=== PATIENT | female | born 1950 | race Caucasian/White ===

== ENCOUNTER 2020-03-26 07:37 | Emergency (ER) | payer OTHER, SELFPAY ==
[2020-03-26 07:48] VITALS: BMI 302.3
[2020-03-26 07:50] VITALS: BP 125/44; PULSE 67; RESP 18; TEMP 36.6; O2SAT 100
[2020-03-26 07:59] VITALS: O2SAT 97
--- NOTE | 2020-03-26 08:03 | CT_ITS ---
WS: [id number] CT HEAD TECHNIQUE: Noncontrast CT of the head obtained from the skullbase to the vertex. CLINICAL INFORMATION: fall, head injury, on aspirin COMPARISON: None. DLP: 756.[address] scans at [facility] use at least one of these dose optimization techniques: automat ed exposure control; mA and/or kV adjustment per patient size (includes targeted exams where dose is matched to clinical indication); or iterative reconstruction. FINDINGS: No evidence of intracranial hemorrhage or mass effect. Ventricular system and basal cisterns are chavez nt. Mild small vessel changes with moderate parenchymal volume loss. Chronic encephalomalacia in the left parietal lobe No extra-axial fluid collections. No evidence of mass or mass effect. Normal browne- white differentiation. Paranasal sinuses and mastoid air cells are well aerated. .Normal visualized soft tissues. Notified Esther Elizabeth MD at 03/26/2020 8:[address]/CT head wo con* [id number] IMPRESSION: 1. No evidence of intracranial hemorrhage or mass effect. 2. Chronic encephalomalacia left parietal lobe likely due to chronic infarct. 3. Mild small vessel changes with moderate parenchymal volume loss. 4. No acute intracranial findings.
--- NOTE | 2020-03-26 08:38 | W.ED.FALL ---
Documented by User: Esther Elizabeth MD 03/26/20 20:09 HPI - Fall General: Chief Complaint: Fall Stated Complaint: FALL/HEAD LAC Time Seen by Provider: 03/26/20 07:59 History of Present Illness: HPI Narrative: This patient is a 70-year-old female who lives at home and continues to work. She slipped and fell in the shower this morning and hit the back of her head. She denies loss consciousness or any presyncopal symptoms. She denies any neck pain or back pain. She has a small laceration on the back of her scalp. She does have a history of a small stroke in July and has been on a full size aspirin. She has a history of migraines for which she takes amitriptyline. She is also on medicine for high cholesterol. MD complaint: fall Onset (ago): hour(s) (1) Fall from: standing Fall witnessed: no Place fall occurred: home Loss of consciousness: None Symptoms prior to fall: none Context: tripped/slipped Location of injury: head Associated symptoms-after fall: Denies abdominal pain, chest pain, headache(s) or neck pain Review of Systems General: Reports: 10 or more systems reviewed and unremarkable except in HPI and below Const: Denies: fever(s), chills, fatigue or malaise Eyes: Denies: change in vision ENMT: Denies: odynophagia Card: Denies: chest pain or swelling of feet/ankles Resp: Denies: dyspnea, productive cough or non-productive cough GI: Denies: abdominal pain, nausea or vomiting : Denies: flank pain or difficulty voiding Musc: Denies: neck pain or back pain Skin/Breast: Denies: rash Neuro: Denies: headache(s), numbness in extremities or weakness in extremities Zhou/Lymph: Denies: easy bruising or easy bleeding Physical Exam Const: COMMON NORMALS: no acute distress, patient oriented x3, no limitations and alert GENERAL APPEARANCE: cooperative and comfortable HENMT: HEAD & SCALP: other (Laceration on the occiput, 2 cm in length) FACE & SINUS: normal facial exam Eye: GENERAL EYE: appearance normal, both eyes and all related structures Neck/C-Spine: COMMON NORMALS: supple, no meningeal signs and no JVD Chest: COMMONS NORMALS: normal inspection of the chest Resp: COMMON NORMALS: normal respiratory effort, No use of accessory muscles and clear to auscultation bilaterally AUSCULTATION: clear to auscultation bilaterally Cardio: COMMON NORMALS: no JVD, regular rate, regular rhythm and No murmurs present (Cardio) RATE: regular rate RHYTHM: regular rhythm GI: COMMON NORMALS: Normal to inspection, nondistended, normoactive bowel sounds present, Soft to palpation and non-tender INSPECTION: Yes normal to inspection AUSCULTATION: Yes normoactive bowel sounds PALPATION: Yes Soft to palpation Back/Pelvis: COMMON NORMALS: thoracic and lumbar spine normal to inspection Extremity: COMMON NORMALS: normal to inspection Neuro: COMMON NORMALS: patient oriented x3, moves all extremities, no focal motor deficits and no sensory deficits noted SENSORIUM/ORIENTATION: Yes alert MENINGEAL SIGNS: Yes no meningeal signs Psych: COMMON NORMALS: mental status grossly normal, cooperative and normal affect Skin: COMMON NORMALS: no rashes or lesions noted and turgor normal GENERAL SKIN EXAM: no rashes or lesions noted and turgor normal Course Vital Signs: Vital signs: Vital Signs Temperature 97.8 F 03/26/20 07:50 Pulse Rate 65 03/26/20 09:36 Respiratory Rate 18 03/26/20 07:50 Blood Pressure 145/69 03/26/20 09:36 Pulse Oximetry 97 03/26/20 09:36 Discharge Plan Discharge Patient Disposition: Home, Self-Care Clinical Impression: Fall Qualifiers: Encounter type: initial encounter Qualified Code(s): W19.XXXA - Unspecified fall, initial encounter Laceration of scalp Qualifiers: Encounter type: initial encounter Qualified Code(s): S01.01XA - Laceration without foreign body of scalp, initial encounter Condition: Stable Prescriptions: No Action aspirin 325 mg Tablet 325 mg PO DAILY RF: 0 amitriptyline 10 mg tablet RF: 0 atorvastatin 40 mg tablet RF: 0 Referrals: Daljit Robertson DO [Family Provider] - Discharge Diet: Usual diet Discharge Activity: Resume usual activity Patient Instructions: Laceration (ED) Activity Restrictions/Additional Instructions: Return to the emergency department for any new or worse symptoms. Be concerned about severe headache, balance difficulties, confusion, vision changes. Continue your regular medications. Alicia may be removed in 10 to 14 days at urgent care or your primary care physician. Discharge Date/Time: 03/26/20 09:36 Coding Level of Care Code ED Diploma Pharmacy Technician for Dylong Fwd Exam Comprehensive Documented by User: PATRIC Galindo 03/26/20 09:16 HPI - Fall General: Chief Complaint: Fall Stated Complaint: FALL/HEAD LAC Time Seen by Provider: 03/26/20 07:59 Procedures Laceration Laceration 1: Site: scalp (Right occipital) Size (cm): 2.5 Description: stellate, clean and other (Contused, with hematoma) Depth: simple, single layer Local Anesthetic: lidocaine 1% and with epi Amount of anesthesia used (mL): 3.0 Pre-repair: wound explored, irrigated extensively, deep structures intact and extensive debridement Skin layer closed with: other ([place] x4, edges approximated) Course Vital Signs: Vital signs: Vital Signs Temperature 97.8 F 03/26/20 07:50 Pulse Rate 65 03/26/20 09:36 Respiratory Rate 18 03/26/20 07:50 Blood Pressure 145/69 03/26/20 09:36 Pulse Oximetry 97 03/26/20 09:36 Discharge Plan Discharge Patient Disposition: Home, Self-Care Clinical Impression: Fall Qualifiers: Encounter type: initial encounter Qualified Code(s): W19.XXXA - Unspecified fall, initial encounter Laceration of scalp Qualifiers: Encounter type: initial encounter Qualified Code(s): S01.01XA - Laceration without foreign body of scalp, initial encounter Condition: Stable Prescriptions: No Action aspirin 325 mg Tablet 325 mg PO DAILY RF: 0 amitriptyline 10 mg tablet RF: 0 atorvastatin 40 mg tablet RF: 0 Referrals: Daljit Robertson DO [Family Provider] - Discharge Diet: Usual diet Discharge Activity: Resume usual activity Patient Instructions: Laceration (ED) Activity Restrictions/Additional Instructions: Return to the emergency department for any new or worse symptoms. Be concerned about severe headache, balance difficulties, confusion, vision changes. Continue your regular medications. Alicia may be removed in 10 to 14 days at urgent care or your primary care physician. Discharge Date/Time: 03/26/20 09:36 Coding Level of Care Code ED Diploma Pharmacy Technician for Chg Fwd Exam Comprehensive
[2020-03-26 09:24] VITALS: BP 129/70; PULSE 60; O2SAT 98
[2020-03-26 09:36] VITALS: BP 145/69; PULSE 65; O2SAT 97
== END 2020-03-26 09:36 | disposition home or self-care (01) ==
PROVIDERS: Emergency Provider Emergency Medicine; Family Provider Electrodiagnostic Medicine
DX: S01.01XA Laceration without foreign body of scalp, initial encounter (principal); W18.2XXA Fall in (into) shower or empty bathtub, initial encounter; Z79.82 Long term (current) use of aspirin
CPT/HCPCS: 12345; 70450; 99281; 99283

== ENCOUNTER → 2020-06-07 14:32 | Outpatient (BNVA) | payer OTHER, SELFPAY | PROVIDERS: Family Provider Electrodiagnostic Medicine; Referring Provider Electrodiagnostic Medicine; Visit Provider Podiatrist Foot & Ankle Surgery | DX: M20.12 Hallux valgus (acquired), left foot (principal); M79.672 Pain in left foot | CPT/HCPCS: 73630 ==

== ENCOUNTER 2020-06-23 10:03 | Outpatient (CLI) | payer OTHER, SELFPAY ==
--- NOTE | 2020-06-23 10:23 | MM_ITS ---
WS: [id number] BILATERAL DIGITAL SCREENING MAMMOGRAPHY WITH CAD CLINICAL INFORMATION: SCREENING HISTORY: Screening mammogram. No current complaints. COMPARISON: TECHNIQUE: Bilateral CC and MLO views. FINDINGS: Scattered fibroglandular densities bilaterally. No suspicious focal mass, asymmetry, calcifications, or architectural distortion. No evidence of malignancy. Stable asymmetric breast tissue upper outer l eft breast. Stable axillary tail lymph nodes. A few punctate calcifications right breast. MM/[place] [id number] IMPRESSION: BI-RADS: 2-Benign FOLLOW UP: 1 Year Follow-up Recommend return to annual screening mammography.
== END 2020-06-23 10:04 | disposition home or self-care (01) ==
LOC: RADSHAW 10:05
PROVIDERS: PCP Electrodiagnostic Medicine; Visit Provider Electrodiagnostic Medicine
DX: Z12.31 Encounter for screening mammogram for malignant neoplasm of breast (principal)
CPT/HCPCS: 77067

== ENCOUNTER 2020-07-07 11:48 | Emergency (ER) | payer OTHER, SELFPAY ==
[2020-07-07 11:53] VITALS: BP 179/74; PULSE 71; RESP 16; TEMP 36.6; O2SAT 96; BMI 29.4
--- NOTE | 2020-07-07 12:20 | XR_ITS ---
WS: [id number] PORTABLE CHEST HISTORY: chest pain COMPARISON: 07/16/2019 Lungs are clear and well expanded. No pleural effusion or pneumothorax. Cardiac size: Normal. Mediastinum/Aorta: Mild atherosclerosis aorta. No osseous abnormality seen. XR/XR chest 1V portable [id number] IMPRESSION: No acute cardiopulmonary disease.
--- NOTE | 2020-07-07 12:21 | ECG_ITS ---
[facility] Test Date: 2020-07-07 Pat Name: Beena Fernandez Department: Room: Gender: Female Cutter Out: : 1950 Requested By: Morris Meier I Order Number: [id number] Reading MD: Measurements Intervals [place] Rate: 69 P: 51 DC: 198 QRS: 12 QRSD: 86 T: 29 QT: 400 QTc: 430 Interpretive Statements SINUS RHYTHM No previous ECG available for comparison [id number] f
[2020-07-07 12:29] LABS: Basophils # 0.1 10^3/uL (0.0-0.1); Basophils % 0.6 %; Eosinophils # 0.2 10^3/uL (0.0-0.8); Eosinophils % 2.3 %; Hematocrit 39.8 % (37.0-47.0); Hemoglobin 12.5 g/dL (11.5-15.3); Lymphocytes # 1.6 10^3/uL (0.8-4.8); Lymphocytes % 17.5 %; Mean Corpuscular HGB Conc 31.4 g/dL (30.0-36.0); Mean Corpuscular Hemoglobin 28.7 pg (28.0-34.0); Mean Corpuscular Volume 91.3 fL (81-99); Mean Platelet Volume 11.4 fL (7.4-10.4); Monocytes # 0.7 10^3/uL (0.2-0.9); Monocytes % 7.3 %; Neutrophils # 6.55 10^3/uL (1.8-7.7); Nucleated Red Blood Cells % 0 %; Platelet Count 220 10^3/cmm (130-400); Red Blood Count 4.36 10^6/uL (4.1-5.3); Red Cell Distribution Width 13.5 % (12.1-15.1); White Blood Count 9.1 10^3/uL (4.0-10.0)
--- NOTE | 2020-07-07 12:32 | ED_ITS ---
HPI - Recheck/Abnormal Lab/Rx General: Chief Complaint: Recheck/Abnormal Lab/Rx Stated Complaint: called over for blood/ekg tests Time Seen by Provider: 07/07/20 11:57 Source: patient and other (PCP's office) Mode of arrival: ambulatory Limitations: no limitations History of Present Illness: HPI narrative: Patient is a 70-year-old female patient with a history of hypertension, CVA, presents to the emergency department from her primary care provider's office with concerns for STEMI. She went to her PCPs office for a preop clearance for shoulder surgery and an EKG done in her PCPs office showed STEMI in V1 to V3. So she was sent here to be seen. The patient denies any chest pain, shortness of breath, difficulty breathing, headaches, dizziness, diaphoresis. 1 week ago she had an episode of epigastric pain/chest pain that she thought was secondary to a hamburger that she had eaten that day. Review of Systems General: Reports: 10 or more systems reviewed and unremarkable except in HPI and below Const: Denies: fever(s), chills or body aches Eyes: Denies: change in vision or blurry vision ENMT: Denies: throat pain, enlarged tonsils, odynophagia, hoarseness, mouth pain or swelling of lips/tongue Card: Denies: palpitations, irregular heart rhythm, edema or swelling of feet/ankles Resp: Denies: dyspnea, productive cough or non-productive cough GI: Denies: abdominal pain, nausea or vomiting : Denies: flank pain, difficulty voiding, dysuria, urinary frequency, urinary urgency or urinary hesitancy Musc: Denies: neck pain, back pain or extremity swelling Skin/Breast: Denies: rash, pruritus or erythema Neuro: Denies: headache(s), numbness in extremities or weakness in extremities Endo: Denies: polyuria, polydipsia or tired all the time PFSH ED PFSH: Medical History (Reviewed 07/07/20 @ 12:37 by Morris Meier MD, [facility] [place]) CVA (cerebral vascular accident) Family History Other CAD (coronary artery disease) Cancer Diabetes Family history of premature coronary artery disease Hyperlipidemia Hypertension Denies family history of Clotting disorder Dementia Psychiatric illness Chronic kidney disease (CKD) Suicide Anesthesia complication Bleeding disorder Lung disease Stroke Physical Exam Const: COMMON NORMALS: no acute distress, average body habitus, patient oriented x3, no limitations, healthy appearing, alert and well nourished HENMT: COMMON NORMALS: normocephalic, atraumatic and moist oral mucous membranes HEAD & SCALP: normocephalic and atraumatic Eye: COMMON NORMALS: Equal, round and reactive pupils present, EOMs intact b ilaterally, conjunctivae normal and no scleral icterus CONJUNCTIVA: Yes conjunctivae normal PUPIL: Yes Equal, round and reactive pupils present Neck/C-Spine: COMMON NORMALS: no meningeal signs and no JVD Chest: COMMONS NORMALS: normal inspection of the chest and normal palpation of entire chest wall Resp: COMMON NORMALS: normal respiratory effort, No retractions, No use of accessory muscles, clear to auscultation bilaterally and percussion normal AUSCULTATION: clear to auscultation bilaterally PERCUSSION: percussion normal Cardio: COMMON NORMALS: no JVD, regular rate, regular rhythm, S1 normal heart sound present, S2 normal heart sound present, No gallops present (Cardio), No clicks present (Cardio), No murmurs present (Cardio), No rub (Cardio) and Peripheral pulses 2+ throughout RATE: regular rate RHYTHM: regular rhythm HEART SOUNDS: S1 normal heart sound present and S2 normal heart sound present PERIPHERAL PULSES: Peripheral pulses 2+ throughout GI: COMMON NORMALS: Normal to inspection, nondistended, normoactive bowel sounds present, Soft to palpation, non-tender, No hepatosplenomegaly present, no masses and no bruits PALPATION: Yes Soft to palpation and Yes No hepatospl enomegaly present Extremity: COMMON NORMALS: normal to inspection, full ROM, capillary refill normal, no calf tenderness and no pedal edema Neuro: COMMON NORMALS: patient oriented x3 SENSORIUM/ORIENTATION: Yes alert MENINGEAL SIGNS: Yes no meningeal signs Skin: COMMON NORMALS: no rashes or lesions noted, no wounds, turgor normal, no jaundice, no petechiae and no mottling GENERAL SKIN EXAM: no rashes or lesions noted and turgor normal Course Reevaluation(s): Reevaluation #1: Discussed her lab and imaging findings with her. Negative for acute findings. Negative high-sensitivity troponin x2. I do not believe she had a non-STEMI. We will discharge her home with no new orders, she voiced understanding and is in agreement with the plan. Time: 15:14 Vital Signs: Vital signs: Vital Signs Temperature 97.8 F 07/07/20 11:53 Pulse Rate 79 07/07/20 15:23 Respiratory Rate 18 07/07/20 15:23 Blood Pressure 136/66 07/07/20 15:23 Pulse Oximetry 95 07/07/20 15:23 MDM - Recheck/Abnormal Lab/Rx MDM Narrative: Medical decision making narrative: 70-year-old female patient who was sent to the emergency department by her primary care provider with concerns for a STEMI. In evaluation in the emergency department EKG was normal, high-sensitivity troponin was negative x2. Patient was asymptomatic. She is therefore discharged home with no new orders. Medical Records: Attestation: I reviewed the patient's medical records. Lab Data: Attestation: I reviewed the patient's lab results. Labs: Lab Results 07/07/20 07/07/20 07/07/20 Range/Units 12:02 12:02 12:02 WBC 9.1 (4.0-10.0) 10^3/ uL RBC 4.36 (4.1-5.3) 10^6/u L Hgb 12.5 (11.5-15.3) g/dL Hct 39.8 (37.0-47.0) % MCV 91.3 (81-99) fL MCH 28.7 (28.0-34.0) pg MCHC 31.4 (30.0-36.0) g/dL RDW 13.5 (12.1-15.1) % Plt Count 220 (130-400) 10^3/c mm MPV 11.4 H (7.4-10.4) fL Neut % (Auto) 72.0 % Lymph % (Auto) 17.5 % [place] % (Auto) 7.3 % Eos % (Auto) 2.3 % Baso % (Auto) 0.6 % Neut # (Auto) 6.55 (1.8-7.7) 10^3/u L Lymph # (Auto) 1.6 (0.8-4.8) 10^3/u L [place] # (Auto) 0.7 (0.2-0.9) 10^3/u L Eos # (Auto) 0.2 (0.0-0.8) 10^3/u L Baso # (Auto) 0.1 (0.0-0.1) 10^3/u L Nucleated RBC % (a uto) 0 % Nucleated RBCs # 0.0 /100WBC Sodium 135 L (136-145) mmol/L Potassium 3.8 (3.5-5.1) mmol/L Chloride 100 (98-107) mmol/L Carbon Dioxide 27 (22-29) mmol/L Anion Gap 11.8 (5-19) BUN 21 (8-23) mg/dL Creatinine 0.6 (0.5-0.9) mg/dL GFR Calculation Not Reportable Glucose 93 (65-115) mg/dL Calculated Osmolal ity 283 L (285-295) mOsm/k g Calcium 9.2 (8.5-10.5) mg/dL Total Bilirubin 0.4 (0.15-1.2) mg/dL AST 23 (0-32) U/L ALT 26 (0-33) U/L Alkaline Phosphata se 135 H (35-105) IU/L Troponin T Baselin e 6 (0-10) ng/L Troponin T 120 Min [place] (0-10) ng/L Delta Troponin T (0-10) ABS# NT-Pro-B Natriuret Pep 234 H (0-125) pg/mL Total Protein 7.3 (6.6-8.7) g/dL Albumin 4.4 (3.5-5.2) g/dL Globulin 2.9 (1.3-4.6) g/dL Lipase 20 (13-60) U/L /28/20 Range/Units 14:03 WBC (4.0-10.0) 10^3/ uL RBC (4.1-5.3) 10^6/u L Hgb (11.5-15.3) g/dL Hct (37.0-47.0) % MCV (81-99) fL MCH (28.0-34.0) pg MCHC (30.0-36.0) g/dL RDW (12.1-15.1) % Plt Count (130-400) 10^3/c mm MPV (7.4-10.4) fL Neut % (Auto) % Lymph % (Auto) % [place] % (Auto) % Eos % (Auto) % Baso % (Auto) % Neut # (Auto) (1.8-7.7) 10^3/u L Lymph # (Auto) (0.8-4.8) 10^3/u L [place] # (Auto) (0.2-0.9) 10^3/u L Eos # (Auto) (0.0-0.8) 10^3/u L Baso # (Auto) (0.0-0.1) 10^3/u L Nucleated RBC % (a uto) % Nucleated RBCs # /100WBC Sodium (136-145) mmol/L Potassium (3.5-5.1) mmol/L Chloride (98-107) mmol/L Carbon Dioxide (22-29) mmol/L Anion Gap (5-19) BUN (8-23) mg/dL Creatinine (0.5-0.9) mg/dL GFR Calculation Glucose (65-115) mg/dL Calculated Osmolal ity (285-295) mOsm/k g Calcium (8.5-10.5) mg/dL Total Bilirubin (0.15-1.2) mg/dL AST (0-32) U/L ALT (0-33) U/L Alkaline Phosphata se (35-105) IU/L Troponin T Baselin e (0-10) ng/L Troponin T 120 Min [place] 6.50 (0-10) ng/L Delta Troponin T 0.50 (0-10) ABS# NT-Pro-B Natriuret Pep (0-125) pg/mL Total Protein (6.6-8.7) g/dL Albumin (3.5-5.2) g/dL Globulin (1.3-4.6) g/dL Lipase (13-60) U/L Imaging Data^: CXR: Attestation: I personally reviewed and interpreted this imaging study as follows: Radiologist's impression: [address] [address] XRay Report Signed Patient: Beena Frenandez #: [id number] : 1950cct#:[id number] Age/Sex: 70 / FADM Date: 07/07/20 Loc: ERRoom/Bed: Attending Dr: Ordering Provider/Ordering MD: Morris Meier MD, [facility] [place] Date of Service: 07/07/20 Procedure(s): XR chest 1V portable [id number] Accession Number(s): [id number] Report Number: [id number] WS: [id number] PORTABLE CHEST HISTORY: chest pain COMPARISON: 07/16/2019 Lungs are clear and well expanded. No pleural effusion or pneumothorax. Cardiac size: Normal. Mediastinum/Aorta: Mild atherosclerosis aorta. No osseous abnormality seen. XR/XR chest 1V portable [id number] IMPRESSION: No acute cardiopulmonary disease. Dictated By:Khadra Palma DO Signed By:Khadra Palma DOSigned Date/Time:07/07/20 1235 DD/ 1234 EKG Data^: EKG 1: Attestation: I personally reviewed and interpreted this EKG as follows: EKG interpretation date: 07/07/20 EKG interpretation time: 11:54 Prior EKG tracings: not available for review Interpretation: Normal sinus rhythm. Heart rate [address] changes. Normal axis EKG 2: Attestation: I personally reviewed and interpreted this EKG as follows: EKG interpretation date: 07/07/20 EKG interpretation time: 14:19 Prior EKG tracings: available for review Interpretation: Sinus bradycardia. Heart rate [address] changes. normal axis. Discharge Plan Discharge Patient Disposition: Home Clinical Impression: Worried well Condition: Stable Prescriptions: Continued aspirin 325 mg Tablet 325 mg PO DAILY RF: 0 amitriptyline 10 mg tablet 10 mg PO DAILY RF: 0 atorvastatin 40 mg tablet 40 mg PO DAILY RF: 0 Imodium A-D 2 mg Tablet 2 mg PO DAILY RF: 0 Vitamin D2 1,250 mcg (50,000 unit) Capsule See Rx Instructions .ROUTE .COMPLEX RF: 0 coQ10 (ubiquinol) 200 mg Capsule 200 mg PO DAILY RF: 0 Discharge Orders: Discharge Order (Routine); Ordered 07/07/20 Ordered By: Morris Meier Referrals: Daljit Robertson DO [Primary Care Provider] - 1-3 days Discharge Diet: Usual diet Discharge Activity: Increase activity as tolerated Activity Restrictions/Additional Instructions: Return for any new or worsening symptoms. Follow-up with your primary care provider within 3 days. Continue home medications as prescribed. Discharge Date/Time: 07/07/20 15:25 Coding Level of Care Code ED Welt Sewer for Dylong Fwd Exam Comprehensive
[2020-07-07 12:38] LABS: Troponin(5th) Baseline 6 ng/L (0-10)
[2020-07-07 12:46] LABS: Alanine Aminotransferase 26 U/L (0-33); Albumin Level 4.4 g/dL (3.5-5.2); Alkaline Phosphatase 135 IU/L (35-105); Anion Gap 11.8 (5-19); Aspartate Amino Transferase 23 U/L (0-32); Blood Urea Nitrogen 21 mg/dL (8-23); Calcium 9.2 mg/dL (8.5-10.5); Carbon Dioxide 27 mmol/L (22-29); Chloride 100 mmol/L (98-107); Globulin 2.9 g/dL (1.3-4.6); Glucose 93 mg/dL (65-115); Lipase 20 U/L (13-60); NT Pro B Type Natriuretic Pept 234 pg/mL (0-125); Osmolality Calculated 283 mOsm/kg (285-295); Potassium 3.8 mmol/L (3.5-5.1); Sodium 135 mmol/L (136-145); Total Bilirubin 0.4 mg/dL (0.15-1.2); Total Protein 7.3 g/dL (6.6-8.7)
[2020-07-07 13:01] VITALS: BP 136/75; PULSE 70; RESP 18; O2SAT 96
--- NOTE | 2020-07-07 14:21 | ECG_ITS ---
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
[2020-07-07 15:23] VITALS: BP 136/66; PULSE 79; RESP 18; O2SAT 95
== END 2020-07-07 15:25 | disposition home or self-care (01) ==
PROVIDERS: Emergency Provider Family Medicine; PCP Electrodiagnostic Medicine
DX: Z86.73 Personal history of transient ischemic attack (TIA), and cerebral infarction without residual deficits (principal)
CPT/HCPCS: 12345; 71045; 80053; 83690; 83880; 84484; 85025; 93005; 99281; 99283

== ENCOUNTER 2020-07-09 09:04 | Outpatient (CLI) | payer OTHER, SELFPAY ==
--- NOTE | 2020-07-09 09:30 | USCV_ITS ---
Beena Fernandez Age: 70 Gender: F : 1950 Exam Date: 07/09/2020 09:20 Ordering Phys: Daljit Robertson DO Technologist: Naa Dorado Exam Location: [facility] [place] Indication: aortic stenosis BP: / HR: 68 Rhythm: Sinus Technical Quality: Good MEASUREMENTS (Male / Female) Normal Values 2D ECHO LV Diastolic Diameter PLAX 4.5 cm 4.2 - 5.9 / 3.9 - 5.3 cm LV Systolic Diameter PLAX 2.9 cm IVS Diastolic Thickness 1.0 cm 0.6 - 1.0 / 0.6 - 0.9 cm IVS Systolic Thickness 1.3 cm LVPW Diastolic Thickness 1.0 cm 0.6 - 1.0 / 0.6 - 0.9 cm LVPW Systolic Thickness 1.6 cm LVOT Diameter 2.1 cm LV Ejection Fraction 2D Teich 65.6 % LV Ejection Fraction MOD 2C 70.4 % LV Ejection Fraction 2C AL 71.0 % LA Diameter 2.5 cm LA Width 3.5 cm LA Height 4.2 cm RA Width 2.6 cm RA Height 4.5 cm M-MODE LV Diastolic Diameter MM 5.3 cm 4.2 - 5.9 / 3.9 - 5.3 cm LV Systolic Diameter MM 3.8 cm LV Ejection Fraction MM Teich 53.8 % IVS Diastolic Thickness MM 0.6 cm 0.6 - 1.0 / 0.6 - 0.9 cm IVS Systolic Thickness MM 0.7 cm LVPW Diastolic Thickness MM 0.9 cm 0.6 - 1.0 / 0.6 - 0.9 cm LVPW Systolic Thickness MM 1.5 cm Aortic Annulus Diameter 3.1 cm LA Ao Ratio MM 0.9 MV E Point Septal Separation 0.8 cm DOPPLER AV Peak Velocity 247.2 cm/s LVOT Peak Velocity 83.0 cm/s AV Area Cont Eq vti 1.3 cm squared AV Area Cont Eq pk 1.1 cm squared MV Peak Velocity 82.0 cm/s MV Area PHT 3.2 cm squared Mitral E to A Ratio 0.7 MV E' Velocity 34.5 cm/s Mitral E to MV E' Ratio 6.1 Mitral E to LV E' Lateral Ratio 6.1 Mitral E to LV E' Septal Ratio 6.1 TR Peak Velocity 144.5 cm/s TR Peak Gradient 8.4 mmHg Right Atrial Pressure 3.0 mmHg Pulmonary Artery Systolic Pressu 11.4 mmHg PV Peak Velocity 113.7 cm/s RV Acceleration Time 0.1 s FINDINGS Left Ventricle Normal left ventricular cavity size. Normal left ventricular systolic function. No regional wall motion abnormalities. Left ventricular ejection fraction is estimated at 65 %. possible patent formen ovale by color flow. Right Ventricle The right ventricle is normal in size and function. Right Atrium The right atrium is normal in size. Left Atrium The left atrium is normal in size. Mitral Valve Structurally normal mitral valve without significant stenosis or prolapse. There is no mitral regurgitation. Aortic Valve Severe aortic valve calcification. Moderate aortic valve stenosis, mean gradient 13 mmHg, JAMEL 1.3 cm squared. Gradient across the aortic valve 13mmhg.Mild Aortic valve insufficiency. Tricuspid Valve Structurally normal tricuspid valve without significant stenosis or regurgitation. Pulmonary artery systolic pressure is normal. Pulmonic Valve Structurally normal pulmonic valve without significant stenosis. There is no pulmonic regurgitation. Pericardium Normal pericardium without effusion. Aorta Normal ascending aorta dimension. CONCLUSIONS 1-Normal left ventricular cavity size. Normal left ventricular systolic function. No regional wall motion abnormalities. Left ventricular ejection fraction is estimated at 65 %. possible patent formen ovale by color flow. 2-Severe aortic valve calcification. Moderate aortic valve stenosis, mean gradient 13 mmHg, JAMEL 1.3 cm squared. Gradient across the aortic valve 13mmhg.Mild Aortic valve insufficiency. 3-Structurally normal tricuspid valve without significant stenosis or regurgitation. Pulmonary artery systolic pressure is normal. 4-There is no pericardial effusion. 5-Right atrial pressure is around 5 mm of mercury. 6-No significant change since the prior echocardiogram study of 07/16/2019. Brenda Echavarria MD (Electronically Signed) Final Date: 09 July 2020 17:24 S
== END 2020-07-09 09:05 | disposition home or self-care (01) ==
LOC: RAD 09:09
PROVIDERS: PCP Electrodiagnostic Medicine; Visit Provider Electrodiagnostic Medicine
DX: I35.0 Nonrheumatic aortic (valve) stenosis (principal)
CPT/HCPCS: 93306

== ENCOUNTER 2020-10-12 07:47 | Outpatient (CLI) | payer OTHER, SELFPAY ==
--- NOTE | 2020-10-12 07:56 | ECG_ITS ---
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 Interpretive Statements NAME OF STUDY: LEXISCAN SESTAMIBI STRESS TEST INDICATION: Sob PROCEDURE: At the baseline, the EKG revealed normal sinus rhythm with a heart rate of [address]-T's.. The baseline blood pressure was 147/57 mm Hg with a heart rate of 67 beats/min. Lexiscan was infused over a period of 20 seconds. A total of 0.4 milligrams of Lexiscan was infused. The stress phase was continued for a total of 5 minutes. Heart rate at the end of the stress phase was 83 with a blood pressure 117/52. The EKG at the peak infusion revealed no significant changes. Sestamibi was injected 20 seconds after the Lexiscan infusion. Blood pressure at the end of the recovery phase was 125/52 with a heart rate of 79 per minute. CONCLUSION: 1. No significant EKG changes with the LexiScan infusion 2. No LexiScan induced chest pain or cardiac arrhythmia 3. Normal blood pressure and heart rate response 4. Sestamibi/sestamibi perfusion scan pending; see separate report. Electronically Signed On 10-21-2020 9:42:49 SPECIAL LIBRARY LIBRARIAN by Julia Nolasco M.D. [email or web address]
--- NOTE | 2020-10-12 07:57 | NMCV_ITS ---
NM samia perf SPECT r/s* [id number] Beena Fernandez Age: 70 Gender: F : 1950 Exam Date: 10/12/2020 09:13 Ordering Phys: Julia Nolasco MD ([email or web address]) Technologist: RADHA Dc Exam Location: [facility] [place] Indications: SOB, abnormal EKG STRESS TEST Please see separate stress test report in [facility] for full findings IMAGE PROTOCOL Rest/Stress 1 Lexiscan Day Radiopharmaceutical Dose (mCi) Administration Site Administered by Rest: Tc-99m 10.4 IV RADHA Morfin Sestamibi Stress:Tc-99m 32.3 IV RADHA Dc Sestamibi Rest: 12-Oct-2020 60 Discovery 630 Stress: 12-Oct-2020 45 Discovery 630 0.4mg Lexiscan. Images obtained in supine and prone position. SPECT RESULTS Technical Quality: Good Raw Data Analysis: Normal Image Corrections: No attenuation or motion correction applied Summed Stress Score: 3 Summed Rest Score: 1 Summed Difference Score: 2 PERFUSION FINDINGS Small area of decreased tracer uptake was noted in the mid inferolateral and apical lateral region, with some reversibility segmental wall motion analysis revealing no gross wall motion normalities FUNCTIONAL RESULTS (calculated via Gated SPECT) Stress Image LV EF (%): 66 Stress EDV (mL):94 TID: 0.95 Stress ESV (mL):32 FUNCTIONAL FINDINGS: Segmental wall motion analysis revealing no gross wall motion abnormalities IMPRESSIONS 1. Myocardial perfusion imaging revealing a small area of decreased tracer uptake in the mid inferolateral and apical lateral regions, with some reversibility, suggestive of myocardial scarring with ischemia in the distribution of the left circumflex artery. 2. Normal LV ejection fraction of 66%. 3. LV wall motion analysis revealing no gross wall motion normalities. 4. Normal LV volume. No similar previous studies are available for comparison Dr Julia Nolasco MD [facility] (Electronically Signed) Final Date: 12 October 2020 16:54 S
[2020-10-12] MEDS: regadenoson 0.4 Mg/5 ml Syringe IVP (11:06)
[2020-10-12 11:19] VITALS: BP 125/52; PULSE 79
== END 2020-10-12 07:48 | disposition home or self-care (01) ==
LOC: CDL 07:51
PROVIDERS: PCP Electrodiagnostic Medicine; Visit Provider Internal Medicine Cardiovascular Disease
DX: R06.02 Shortness of breath (principal); R94.31 Abnormal electrocardiogram [ECG] [EKG]
CPT/HCPCS: 78452; 93017; A9500; J2785

== ENCOUNTER → 2021-03-10 11:19 | Outpatient (BNVA) | payer OTHER, SELFPAY | PROVIDERS: PCP Electrodiagnostic Medicine; Visit Provider Podiatrist Foot & Ankle Surgery | DX: M67.472 Ganglion, left ankle and foot (principal) | CPT/HCPCS: 88304 ==

== ENCOUNTER → 2021-04-18 15:46 | Outpatient (BNVA) | payer OTHER, SELFPAY | PROVIDERS: PCP Electrodiagnostic Medicine; Visit Provider Nurse Practitioner Family | DX: Z20.822 Contact with and (suspected) exposure to COVID-19 (principal) | CPT/HCPCS: 87635 ==

== ENCOUNTER 2022-03-08 13:59 | Outpatient (CLI) | payer OTHER, SELFPAY ==
--- NOTE | 2022-03-08 14:14 | MM_ITS ---
WS: [id number] BILATERAL 3D TOMOSYNTHESIS DIGITAL SCREENING MAMMOGRAPHY WITH CAD CLINICAL INFORMATION: SCREENING HISTORY: Screening mammogram. No current complaints. COMPARISON: June 23, 2020 TECHNIQUE: Bilateral CC and MLO views. FINDINGS: Scattered fibroglandular densities bilaterally. Punctate calcification RIGHT breast. No suspicious fo meggan mass, asymmetry, calcifications, or architectural distortion. No evidence of malignancy. MM/[place] [id number] IMPRESSION: BI-RADS: 2-Benign FOLLOW UP: 1 Year Follow-up Recommend return to annual screening mammography.
== END 2022-03-08 14:00 | disposition home or self-care (01) ==
LOC: RAD 14:03
PROVIDERS: PCP Electrodiagnostic Medicine; Visit Provider Electrodiagnostic Medicine
DX: Z12.31 Encounter for screening mammogram for malignant neoplasm of breast (principal)
CPT/HCPCS: 77063; 77067

== ENCOUNTER 2022-10-18 12:25 | Outpatient (CLI) | payer MEDICARE, OTHER, SELFPAY ==
--- NOTE | 2022-10-18 12:45 | USCV_ITS ---
Beena Fernandez Age: 72 Gender: F : 1950 Exam Date: 10/18/2022 12:57 Ordering Phys: Joe Mcclure MD ([email or web address]) Technologist: Naa Dorado Exam Location: [facility] [place] Indication: BP: 118 / 70 HR: 56 Rhythm: Sinus Technical Quality: Good MEASUREMENTS (Male / Female) Normal Values 2D ECHO LV Diastolic Diameter PLAX 4.7 cm 4.2 - 5.9 / 3.9 - 5.3 cm LV Systolic Diameter PLAX 2.8 cm IVS Diastolic Thickness 1.3 cm 0.6 - 1.0 / 0.6 - 0.9 cm IVS Systolic Thickness 1.8 cm LVPW Diastolic Thickness 0.6 cm 0.6 - 1.0 / 0.6 - 0.9 cm LVPW Systolic Thickness 1.5 cm LVOT Diameter 2.2 cm LV Ejection Fraction 2D Teich 70.4 % LV Ejection Fraction MOD 2C 66.1 % LV Ejection Fraction 2C AL 68.5 % LA Diameter 2.9 cm LA Width 3.6 cm LA Height 4.0 cm RA Width 2.7 cm RA Height 4.5 cm Aorta at Sinotubular Diameter 3.0 cm IVC Diameter 1.5 cm M-MODE MV E Point Septal Separation 0.6 cm DOPPLER AV Peak Velocity 180.0 cm/s LVOT Peak Velocity 75.0 cm/s AV Area Cont Eq vti 1.8 cm squared AV Area Cont Eq pk 1.6 cm squared MV Area PHT 2.4 cm squared Mitral E to A Ratio 0.7 MV E' Velocity 28.5 cm/s Mitral E to MV E' Ratio 6.6 Mitral E to LV E' Lateral Ratio 7.6 Mitral E to LV E' Septal Ratio 5.9 TR Peak Velocity 218.0 cm/s TR Peak Gradient 19.0 mmHg Right Atrial Pressure 3.0 mmHg Pulmonary Artery Systolic Pressu 22.0 mmHg PV Peak Velocity 126.0 cm/s RV Acceleration Time 0.2 s RV Ejection Time 0.4 s RV AcT/ET 0.5 FINDINGS Left Ventricle Normal left ventricular size and systolic function, EF 66 %. No regional wall motion abnormalities. Grade I/IV diastolic dysfunction (abnormal relaxation filling pattern), normal to mildly elevated filling pressures. Right Ventricle The right ventricle is normal in size and function. Right Atrium The right atrium is normal in size. Left Atrium Mildly increased left atrial size. Mitral Valve Mild mitral valve regurgitation. Aortic Valve Moderate to heavy aortic valve calcification. Mild aortic valve stenosis with a valve area 1.8 cm squared. Tricuspid Valve No gross abnormalities noted.trace tricuspid valve regurgitation. Pulmonic Valve Pulmonic valve not well visualized. Pericardium No pericardial effusion. Aorta Normal aorta size at the level of the sinus of valsalva. IVC Normal inferior vena cava. CONCLUSIONS Normal left ventricular size and systolic function, EF 66 %. No regional wall motion abnormalities. Grade I/IV diastolic dysfunction (abnormal relaxation filling pattern), normal to mildly elevated filling pressures. Mildly increased left atrial size. Moderate to heavy aortic valve calcification. Mild aortic valve stenosis with a valve area 1.8 cm squared. Mild mitral valve regurgitation. Trace of tricuspid regurgitation Estimated pulmonary artery peak systolic pressure, within normal limits Compared to the study from 07/09/2020. The aortic valve stenosis appears to be less severe. Dr Julia Nolasco MD [facility] (Electronically Signed) Final Date: 18 October 2022 13:47 S
== END 2022-10-18 12:26 | disposition home or self-care (01) ==
LOC: RAD 12:29
PROVIDERS: PCP Electrodiagnostic Medicine; Visit Provider Internal Medicine Cardiovascular Disease
DX: I35.0 Nonrheumatic aortic (valve) stenosis (principal); I34.0 Nonrheumatic mitral (valve) insufficiency; I07.1 Rheumatic tricuspid insufficiency
CPT/HCPCS: 93306

== ENCOUNTER 2022-11-14 18:53 | Emergency (ER) | payer MEDICARE, OTHER, SELFPAY ==
[2022-11-14] VITALS (13 sets, daily range): BP systolic 113–161; BP diastolic 41–67; PULSE 55–90; RESP 11–26; O2SAT 95–99; BMI 23.8
--- NOTE | 2022-11-14 19:11 | ECG_ITS ---
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 Measurements Intervals [place] Rate: 70 P: 75 NC: 200 QRS: 62 QRSD: 82 T: 68 QT: 396 QTc: 430 Interpretive Statements SINUS RHYTHM WITH OCCASIONAL VENTRICULAR PREMATURE COMPLEXES POSSIBLE LEFT ATRIAL ENLARGEMENT [-0.1mV P-WAVE IN V1/V2] MODERATE ST DEPRESSION [0.05+ mV ST DEPRESSION] Compared to ECG 07/07/2020 14:19:21 Ventricular premature complex(es) now present Sinus bradycardia no longer present ST (T wave) deviation still present Electronically Signed On 11-15-2022 15:04:11 SPOT WORKER by Joe Mcclure M.D. [id number]
--- NOTE | 2022-11-14 19:13 | ED_ITS ---
HPI - General Adult General: Chief complaint: General Medical Stated complaint: stroke like sx Time Seen by Provider: 11/14/22 19:13 History of Present Illness: Ms. Fernandez is a 72-year-old lady with history of stroke, aortic stenosis, hypertension, hyperlipidemia presenting to the [facility] department for shaking episodes. She describes yesterday having acute onset of shortness of breath and shaking associated with presyncopal type feeling. She has had recurrent episodes including most recently this evening when she was going out to go to dinner. Intensity symptoms when present is moderate to severe. Denies any focality to neurologic findings. No other specific changes in health, exacerbating, or alleviating factors identified. Onset (ago): hour(s) Severity: moderate Relieving factors: none Exacerbating factors: none Associated symptoms: Reports other Review of Systems General: Reports: 10 or more systems reviewed and unremarkable except in HPI and below PFSH ED PFSH: Medical History Abnormal EKG Aortic stenosis Atherosclerosis Chronic migraine CVA (cerebral vascular accident) Dyslipidemia Elevated blood pressure reading Family history of cancer Family history of coronary artery disease Family history of diabetes mellitus Family history of hyperlipidemia Family hx of hypertension Old cerebrovascular accident (CVA) without late effect Patent foramen ovale Surgical History Hx of hysterectomy Family History Other CAD (coronary artery disease) Cancer Diabetes Family history of premature coronary artery disease Hyperlipidemia Hypertension Denies family history of Clotting disorder Dementia Psychiatric illness Chronic kidney disease (CKD) Suicide Anesthesia complication Bleeding disorder Lung disease Stroke Social History Smoking and tobacco status: former smoker Second hand smoke exposure: Yes Alcohol intake: current Alcohol intake frequency: holidays/special occasions only Alcohol type: wine Physical Exam Const: COMMON NORMALS: patient oriented x3 and alert GENERAL APPEARANCE: cooperative and well developed HENMT: COMMON NORMALS: normocephalic and atraumatic HEAD & SCALP: normocephalic and atraumatic Eye: COMMON NORMALS: conjunctivae normal CONJUNCTIVA: Yes conjunctivae normal SCLERA: sclerae normal Neck/C-Spine: COMMON NORMALS: supple GENERAL: Yes trachea midline Resp: COMMON NORMALS: normal respiratory effort EFFORT & INSPECTION: Yes able to speak in complete sentences Cardio: COMMON NORMALS: regular rate and regular rhythm RATE: regular rate RHYTHM: regular rhythm GI: COMMON NORMALS: Soft to palpation PALPATION: Yes Soft to palpation and No Tenderness to palpation present (GI) PERCUSSION: normal to percussion Extremity: GENERAL: Yes normal exam except as noted and No edema Neuro: COMMON NORMALS: patient oriented x3, CN's II-XII intact bilaterally, moves all extremities, no focal motor deficits and no sensory deficits noted SENSORIUM/ORIENTATION: Yes alert and No Orientation impaired OTHER: Bilateral upper extremity tremors, inconsistent with seizure. Psych: COMMON NORMALS: mental status grossly normal and Normal thought process present THOUGHT PROCESS: Normal thought process present Course Vital Signs: Vital signs: Vital Signs Pulse Rate 59 L 11/14/22 21:36 Respiratory Rate 19 H 11/14/22 21:36 Blood Pressure 121/53 11/14/22 21:36 Pulse Oximetry 98 11/14/22 21:36 Oxygen Delivery Me thod 11/14/22 18:56 MDM - General Adult Medical Decision Making 72-year-old lady presenting for evaluation of abnormal muscle movements and difficulty speaking. NIHSS of 0 on my exam. She is nontoxic. EKG notable for sinus rhythm with occasional PVC, normal axis and intervals, no STEMI. No significant hematologic or metabolic abnormalities to explain symptoms. Negative range 2-hour delta troponin. Given absence of specific urinary symptoms and squamous epithelial contamination urinalysis is negative for UTI. EKG with no lobar consolidation or pneumothorax. CT head negative and given absence of focal symptoms I do not feel that advanced vascular imaging is needed at this time. Patient has improvement with p.o. anxiolysis and IV fluids. Most likely etiology of patient's symptoms is unclear though does not appear to need inpatient management at this time. The results of ED evaluation were discussed with the patient including prescriptions and/or symptomatic cares (if applicable) including appropriate and responsible use, followup plan, and return precautions. The patient verbalized understanding and felt safe for discharge. Medical Records I reviewed the patient's medical records. Lab Data I reviewed the patient's lab results. 11/14/22 19:20 11/14/22 19:20 Radiology Impressions Chest X-Ray 11/14/22 19:25 IMPRESSION: 1. No acute abnormality demonstrated. 2. There is no interval change from the prior examination. Head CT 11/14/22 19:25 IMPRESSION: 1. No acute intracranial abnormality demonstrated. 2. There is no interval change from the prior examination. Laboratory Results WBC 7.3 10^3/uL (4.0-10.0) 11/14/22 19:20 RBC 4.28 10^6/uL (4.1-5.3) 11/14/22 19:20 Hgb 13.0 g/dL (11.5-15.3) 11/14/22 19:20 Hct 39.9 % (37.0-47.0) 11/14/22 19: MCV 93.2 fl (81-99) 11/14/22 19: MCH 30.4 pg (28.0-34.0) 11/14/22 19: MCHC 32.6 g/dL (30.0-36.0) 11/14/22 19: RDW 12.9 % (12.1-15.1) 11/14/22 19: Plt Count 175 10^3/cmm (130-400) 11/14/22 19:20 MPV 11.9 fL (7.4-10.4) H 11/14/22 19:20 Neut % (Auto) 67.6 % 11/14/22 19:20 Lymph % (Auto) 22.0 % 11/14/22 19:20 White % (Auto) 8.1 % 11/14/22 19:20 Eos % (Auto) 1.8 % 11/14/22 19:20 Baso % (Auto) 0.4 % 11/14/22 19:20 Neut # (Auto) 4.91 10^3/uL (1.8-7.7) 11/14/22 19:20 Lymph # (Auto) 1.6 10^3/uL (0.8-4.8) 11/14/22 19:20 White # (Auto) 0.6 10^3/uL (0.2-0.9) 11/14/22 19:20 Eos # (Auto) 0.1 10^3/uL (0.0-0.8) 11/14/22 19:20 Baso # (Auto) 0.0 10^3/uL (0.0-0.1) 11/14/22 19:20 Nucleated RBC % (auto) 0 % 11/14/22 19:20 Nucleated RBCs # 0.0 /100WBC 11/14/22 19:20 Sodium 138 mmol/L (136-145) 11/14/22 19:20 Potassium 3.8 mmol/L (3.5-5.1) 11/14/22 19:20 Chloride 99 mmol/L (98-107) 11/14/22 19:20 Carbon Dioxide 26 mmol/L (22-29) 11/14/22 19:20 Anion Gap 16.8 (5-19) 11/14/22 19:20 BUN 28 mg/dL (8-23) H 11/14/22 19:20 Creatinine 0.6 mg/dL (0.5-0.9) 11/14/22 19:20 GFR Calculation Not Reportable 11/14/22 19:20 Glucose 134 mg/dL (65-115) H 11/14/22 19:20 POC Glucose 113 mg/dL (70-110) H 11/14/22 19:29 Calculated Osmolality 293 mOsm/kg (285-295) 11/14/22 19:20 Calcium 9.4 mg/dL (8.5-10.5) 11/14/22 19:20 Total Bilirubin 0.3 mg/dL (0.15-1.2) 11/14/22 19:20 AST 20 U/L (0-32) 11/14/22 19:20 ALT 16 U/L (0-33) 11/14/22 19:20 Alkaline Phosphatase 92 U/L (35-105) 11/14/22 19:20 Troponin T Baseline 7 ng/L (0-10) 11/14/22 19:20 Troponin T 120 Minute 8.68 ng/L (0-10) 11/14/22 20:50 Delta Troponin T 1.68 ABS# (0-10) 11/14/22 20:50 Total Protein 7.1 g/dL (6.6-8.7) 11/14/22 19:20 Albumin 4.2 g/dL (3.5-5.2) 11/14/22 19:20 Globulin 2.9 g/dL (1.3-4.6) 11/14/22 19:20 TSH 3.96 uIU/mL (0.27-4.20) 11/14/22 19:20 Urine Color Yellow (Yellow) 11/14/22 19:57 Urine Appearance Hazy (CLEAR) A 11/14/22 19:57 Urine pH 8 (5-7) H 11/14/22 19:57 Ur Specific [place] 1.010 (1.005-1.030) 11/14/22 19:57 Urine Protein Neg (Negative) 11/14/22 19:57 Urine Glucose (UA) Norm (Normal) 11/14/22 19:57 Urine Ketones Negative (Negative) 11/14/22 19:57 Urine Blood 2+ (Negative) H 11/14/22 19:57 Urine Nitrate Negative (Negative) 11/14/22 19:57 Urine Bilirubin Neg (Negative) 11/14/22 19:57 Prot Sulfosalicylic Acd Negative (Negative) 11/14/22 19:57 Urine Urobilinogen Norm mg/dL (Negative) 11/14/22 19:57 Ur Leukocyte Esterase 2+ (Negative) H 11/14/22 19:57 Urine RBC 10-15 /hpf (0-2) H 11/14/22 19:57 Urine WBC 25-40 /hpf (0-5) H 11/14/22 19:57 Ur Squamous Epith Cells 15-25 /hpf (0-5) H 11/14/22 19:57 Ur Renal Epithelial Cell 5 /hpf 11/14/22 19:57 Amorphous Sediment Not Reportable 11/14/22 19:57 Urine Bacteria 1+ /hpf (NONE) H 11/14/22 19:57 Discharge Plan Discharge Patient Disposition: Home Clinical Impression: Episode of shaking Condition: Stable Prescriptions: No Action biotin 10 mg tablet 10 mg PO DAILY losartan 100 mg tablet 25 mg PO DAILY Rx Instructions: Dose decreased by PCP metoprolol succinate 25 mg tablet extended release 24 hr 25 mg PO DAILY Qty: 90 2RF aspirin 325 mg Tablet 325 mg PO DAILY Rx Instructions: PT STATES SHE HAS BEEN OUT SINCE SUNDAY. atorvastatin 40 mg tablet 40 mg PO DAILY amitriptyline 10 mg tablet 20 mg PO DAILY Imodium A-D 2 mg Tablet 2 mg PO DAILY Vitamin D2 1,250 mcg (50,000 unit) Capsule See Rx Instructions .ROUTE .COMPLEX Rx Instructions: 1,250 mcg orally TAKE 2 TIMES PER WEEK. Discharge Orders: Discharge ED (Routine); Ordered 11/14/22 Ordered By: Romario Hitchcock Referrals: Daljit Robertson DO [Primary Care Provider] - Discharge Diet: Usual diet Discharge Activity: Resume usual activity Patient Instructions: Tremors (ED) Activity Restrictions/Additional Instructions: Thank you for visiting the emergency department. You were seen and evaluated for generalized shaking episodes associated with shortness of breath and lightheadedness. The exact cause of the symptoms is unclear though does not appear to need inpatient management at this time. You are not having a heart attack and this does not appear to be related to stroke. Please ensure that you are staying hydrated. Please follow-up with your primary care provider. Return to the emergency department for anything that you are concerned about and feel needs emergency department evaluation Coding Level of Care Code ED Salt Cutter for Don Johnson
--- NOTE | 2022-11-14 19:25 | CTR_ITS ---
PROCEDURE INFORMATION: Exam: CT Head Without Contrast Exam date and time: 11/14/2022 7:48 PM Age: 72 years old Clinical indication: Dizziness and other: Tremors; Patient HX: Severe dizziness with body tremors. History of prior CVA. ; Additional info: AMS, shaking TECHNIQUE: Imaging protocol: Computed tomography of the head without contrast. Radiation optimization: All CT scans at this facility use at least one of these dose optimization techniques: automated exposure control; mA and/or kV adjustment per patient size (includes targeted exams where dose is matched to clinical indication); or iterative reconstruction. REPORTING DATA: Count of CT and Cardiac NM exams in prior 12 months: This patient has received 0 known CTs and 0 known cardiac nuclear medicine studies in the 12 months prior to the current study. COMPARISON: CT head wo con* [id number] 03/26/2020 8:10 AM RADIATION DOSE METRICS: Total DLP (mGy-cm): 961.09 FINDINGS: Brain: Age related parenchymal volume loss noted. Old left posterior parietal encephalomalacia, consistent with old infarct. No parenchymal edema identified. No intracranial hemorrhage noted. Cerebral ventricles: No ventriculomegaly. Paranasal sinuses: Visualized sinuses are unremarkable. No air fluid levels. Mastoid air cells: Unremarkable as visualized. No mastoid effusion. Bones/joints: Unremarkable. No acute fracture. Soft tissues: Unremarkable. CT/CT head wo con* [id number] IMPRESSION: 1. No acute intracranial abnormality demonstrated. 2. There is no interval change from the prior examination.
--- NOTE | 2022-11-14 19:25 | XRR_ITS ---
PROCEDURE INFORMATION: Exam: XR Chest Exam date and time: 11/14/2022 7:32 PM Age: 72 years old Clinical indication: Shortness of breath and other: Shaking; Additional info: SOB, shaking TECHNIQUE: Imaging protocol: Radiologic exam of the chest. Views: 1 view. COMPARISON: CR XR chest 1V portable [id number] 07/07/2020 12:21 PM FINDINGS: Lungs: No consolidation. Pleural spaces: No pleural effusion. No pneumothorax. Heart/Mediastinum: No cardiomegaly. Vasculature: The thoracic aorta is atherosclerotic. Bones/joints: Unremarkable. XR/XR chest 1V portable [id number] IMPRESSION: 1. No acute abnormality demonstrated. 2. There is no interval change from the prior examination.
[2022-11-14 19:34] LABS: Glucose Point of Care 113 mg/dL (70-110)
[2022-11-14 19:52] LABS: Basophils % 0.4 %; Eosinophils # 0.1 10^3/uL (0.0-0.8); Eosinophils % 1.8 %; Hematocrit 39.9 % (37.0-47.0); Lymphocytes # 1.6 10^3/uL (0.8-4.8); Mean Corpuscular HGB Conc 32.6 g/dL (30.0-36.0); Mean Corpuscular Hemoglobin 30.4 pg (28.0-34.0); Mean Corpuscular Volume 93.2 fl (81-99); Mean Platelet Volume 11.9 fL (7.4-10.4); Monocytes # 0.6 10^3/uL (0.2-0.9); Monocytes % 8.1 %; Neutrophils # 4.91 10^3/uL (1.8-7.7); Neutrophils % 67.6 %; Nucleated Red Blood Cells % 0 %; Platelet Count 175 10^3/cmm (130-400); Red Blood Count 4.28 10^6/uL (4.1-5.3); Red Cell Distribution Width 12.9 % (12.1-15.1); White Blood Count 7.3 10^3/uL (4.0-10.0)
[2022-11-14 20:13] LABS: Troponin(5th) Baseline 7 ng/L (0-10)
[2022-11-14 20:22] LABS: Alanine Aminotransferase 16 U/L (0-33); Albumin Level 4.2 g/dL (3.5-5.2); Alkaline Phosphatase 92 U/L (35-105); Anion Gap 16.8 (5-19); Aspartate Amino Transferase 20 U/L (0-32); Blood Urea Nitrogen 28 mg/dL (8-23); Calcium 9.4 mg/dL (8.5-10.5); Carbon Dioxide 26 mmol/L (22-29); Chloride 99 mmol/L (98-107); Creatinine Clr Calc Pharmacy 53.0414; Globulin 2.9 g/dL (1.3-4.6); Glucose 134 mg/dL (65-115); Osmolality Calculated 293 mOsm/kg (285-295); Potassium 3.8 mmol/L (3.5-5.1); Sodium 138 mmol/L (136-145); Thyroid Stimulating Hormone 3.96 uIU/mL (0.27-4.20); Total Bilirubin 0.3 mg/dL (0.15-1.2); Total Protein 7.1 g/dL (6.6-8.7)
[2022-11-14 20:44] LABS: Urine Appearance Hazy (CLEAR); Urine Color Yellow (Yellow)
[2022-11-14 20:45] LABS: Bilirubin Urine Neg (Negative); Blood Urine 2+ (Negative); Glucose Urine UA Norm (Normal); Ketones Urine Negative (Negative); Leukocyte Esterase Urine 2+ (Negative); Nitrate Urine Negative (Negative); Protein Urine Neg (Negative); Urobilinogen Urine Norm (Negative); pH Urine 8 (5-7)
[2022-11-14 20:46] LABS: Add Urine Microscopic? YES; Sulfosalicylic Acid Urine Negative (Negative)
[2022-11-14 20:48] LABS: Squamous Epithelial Cell Urine 15-25 /hpf (0-5); WBC Urine 25-40 /hpf (0-5)
[2022-11-14 20:51] LABS: Renal Epithelial Cells Urine 5 /hpf
[2022-11-14 20:53] LABS: Bacteria Urine 1+ /hpf
[2022-11-14] MEDS: sodium chloride 0.9% 500 ML 999 ML IV (20:55)
[2022-11-14 21:14] LABS: Troponin 5 2HR 8.68 ng/L (0-10)
[2022-11-14] MEDS: LORazepam 0.5 mg Tablet 0.25 MG PO (21:21)
[2022-11-14 21:53] LABS: Troponin 5 2HR Delta 1.68 ABS# (0-10)
== END 2022-11-14 21:43 | disposition home or self-care (01) ==
PROVIDERS: Emergency Provider Emergency Medicine; PCP Electrodiagnostic Medicine
DX: R25.1 Tremor, unspecified (principal); Z79.82 Long term (current) use of aspirin; Z87.891 Personal history of nicotine dependence; Z86.73 Personal history of transient ischemic attack (TIA), and cerebral infarction without residual deficits; E78.5 Hyperlipidemia, unspecified
CPT/HCPCS: 36416; 70450; 71045; 80053; 81001; 82962; 84443; 84484; 85025; 93005; 96360; 99285; J7040

== ENCOUNTER → 2023-03-01 10:58 | Outpatient (BNVA) | payer MEDICARE, OTHER, SELFPAY | PROVIDERS: PCP Electrodiagnostic Medicine; Visit Provider Specialist | DX: I35.0 Nonrheumatic aortic (valve) stenosis (principal); E78.5 Hyperlipidemia, unspecified; I10 Essential (primary) hypertension; Z87.891 Personal history of nicotine dependence | CPT/HCPCS: 99214 ==

== ENCOUNTER 2023-03-25 12:31 | Emergency (ER) | payer MEDICARE, OTHER, SELFPAY ==
[2023-03-25 12:51] VITALS: BP 123/65; PULSE 58; RESP 14; TEMP 36.5; O2SAT 98; BMI 25.2
--- NOTE | 2023-03-25 12:56 | ED_ITS ---
HPI - Wound/Laceration General: Chief Complaint: Wound/Laceration Stated Complaint: Tripped and fell into table cracked head open Time Seen by Provider: 03/25/23 12:56 History of Present Illness: Patient is a 73-year-old female who comes to the ED with laceration to scalp. Injury occurred just prior to arrival. Patient says she was walking in her house and she tripped falling forward and the frontal part of her scalp just behind her hairline hit the corner of a table causing laceration. She denies any loss of consciousness but states that she felt a little dizzy and was seeing stars afterwards. Endorses having a mild headache. Denies any vision changes or numbness tingling or weakness to 1 side of her body or face. Patient states she takes an aspirin 325 mg daily. Patient is up-to-date on her tetanus. Associated symptoms: Denies chills, fever(s), nausea or vomiting Review of Systems Const: Denies: fever(s), chills or fatigue Eyes: Denies: change in vision or eye discomfort ENMT: Denies: throat pain, odynophagia, nasal discharge or nasal congestion Card: Denies: chest pain, palpitations, edema, swelling of feet/ankles, dyspnea on exertion or orthopnea Resp: Denies: dyspnea, productive cough or non-productive cough GI: Denies: abdominal pain, nausea, vomiting, diarrhea, constipation or hematochezia : Denies: flank pain, dysuria or hematuria Musc: Denies: neck pain, back pain or extremity swelling Skin/Breast: Reports: new lesions (laceration to scalp); Denies: rash Neuro: Denies: headache(s), numbness in extremities or weakness in extremities PFSH ED PFSH: Medical History Abnormal EKG Aortic stenosis Atherosclerosis Chronic migraine CVA (cerebral vascular accident) Dyslipidemia Elevated blood pressure reading Family history of cancer Family history of coronary artery disease Family history of diabetes mellitus Family history of hyperlipidemia Family hx of hypertension Old cerebrovascular accident (CVA) without late effect Patent foramen ovale Surgical History Hx of hysterectomy Family History Other CAD (coronary artery disease) Cancer Diabetes Family history of premature coronary artery disease Hyperlipidemia Hypertension Denies family history of Clotting disorder Dementia Psychiatric illness Chronic kidney disease (CKD) Suicide Anesthesia complication Bleeding disorder Lung disease Stroke Social History Smoking and tobacco status: former smoker Second hand smoke exposure: Yes Alcohol intake: current Alcohol intake frequency: holidays/special occasions only Alcohol type: wine Substance/Drug Use: never Physical Exam Const: COMMON NORMALS: no acute distress, patient oriented x3, healthy appearing and alert HENMT: COMMON NORMALS: normocephalic HEAD & SCALP: normocephalic and laceration right frontal Details of head laceration: linear and superficial; not actively bleeding, not pulsatile bleeding and not contaminated Head laceration size: 2 cm; no Urbina's sign and no raccoon eyes MOUTH: Normal oral and palatal mucosa present THROAT: posterior oropharynx normal and uvula midline Eye: COMMON NORMALS: Equal, round and reactive pupils present and EOMs intact bilaterally GENERAL EYE: appearance normal, both eyes and all related structures PUPIL: Yes Equal, round and reactive pupils present Neck/C-Spine: COMMON NORMALS: supple GENERAL: Yes normal visual inspection Lymph: LYMPHATIC: no lymphadenopathy noted Resp: COMMON NORMALS: normal respiratory effort, No retractions, No use of accessory muscles and clear to auscultation bilaterally AUSCULTATION: clear to auscultation bilaterally Cardio: COMMON NORMALS: regular rate, regular rhythm, S1 normal heart sound present, S2 normal heart sound present, No gallops present (Cardio), No clicks present (Cardio), No murmurs present (Cardio) and Peripheral pulses 2+ throughout RATE: regular rate RHYTHM: regular rhythm HEART SOUNDS: S1 normal heart sound present and S2 normal heart sound present PERIPHERAL PULSES: Peripheral pulses 2+ throughout GI: COMMON NORMALS: Normal to inspection, nondistended, normoactive bowel sounds present, Soft to palpation, non-tender and no masses PALPATION: Yes Soft to palpation : COMMON NORMALS: Yes no CVA tenderness BLADDER/KIDNEY EXAM: Yes no CVA tenderness Back/Pelvis: COMMON NORMALS: no CVA tenderness Extremity: GENERAL: Yes normal exam except as noted Neuro: COMMON NORMALS: patient oriented x3, CN's II-XII intact bilaterally, moves all extremities, no focal motor deficits and no sensory deficits noted SENSORIUM/ORIENTATION: Yes alert SENSORY EXAM: Yes extremities (intact) MOTOR EXAM: 5/5 motor strength present throughout Skin: COMMON NORMALS: no rashes or lesions noted GENERAL SKIN EXAM: no rashes or lesions noted and dry skin Procedures Laceration Laceration 1: Site: scalp Size (cm): 2 Description: linear and clean Depth: simple, single layer Local Anesthetic: lidocaine 1% and with epi Amount of anesthesia used (mL): 6 Pre-repair: irrigated extensively (With normal saline) Skin layer closed with: other ([place]licia) Number of sutures: 5 Technique: other ([place]) Course Vital Signs: Vital signs: Vital Signs Temperature 97.7 F 03/25/23 12:51 Pulse Rate 58 L 03/25/23 12:51 Respiratory Rate 14 03/25/23 12:51 Blood Pressure 123/65 03/25/23 12:51 Pulse Oximetry 98 03/25/23 12:51 Oxygen Delivery Me thod Room Air 03/25/23 12:51 MDM - Wound/Laceration Medical Decision Making Patient is a 73-year-old female who comes to the ED with laceration to scalp. Injury occurred just prior to arrival. Patient says she was walking in her [place] and she tripped falling forward and the frontal part of her scalp just behind her hairline hit the corner of a table causing laceration. She denies any loss of consciousness but states that she felt a little dizzy and was seeing stars afterwards. Endorses having a mild headache. Denies any vision changes or numbness tingling or weakness to 1 side of her body or face. Patient states she takes an aspirin 325 mg daily. Patient is up-to-date on her tetanus. Vitals are stable. Neuro exam shows no deficits. 2 cm linear laceration to right frontal scalp. Rest of exam is benign. Head CT shows no acute findings. Laceration was irrigated extensor with normal saline and then lidocaine 1% with epi was used as local. 5 alicia were placed to close laceration. Patient tolerated procedure well. She was stable for discharge home and instructed on how to care for laceration site. Have alicia removed in the next 7 to 10 days. Patient understood and agreed with plan. Lab Data Radiology Impressions Head CT 03/25/23 13:06 IMPRESSION: 1. No acute intracranial abnormality. 2. Incidental findings above. Discharge Plan Discharge Patient Disposition: Home Clinical Impression: Minor head injury without loss of consciousness, Laceration of scalp Condition: Stable Prescriptions: No Action biotin 10 mg tablet 10 mg PO DAILY losartan 100 mg tablet 25 mg PO DAILY Rx Instructions: Dose decreased by PCP metoprolol succinate 25 mg tablet extended release 24 hr 25 mg PO DAILY Qty: 90 2RF aspirin 325 mg Tablet 325 mg PO DAILY Rx Instructions: PT STATES SHE HAS BEEN OUT SINCE SUNDAY. atorvastatin 40 mg tablet 40 mg PO DAILY amitriptyline 10 mg tablet 20 mg PO DAILY Imodium A-D 2 mg Tablet 2 mg PO DAILY Vitamin D2 1,250 mcg (50,000 unit) Capsule See Rx Instructions .ROUTE .COMPLEX Rx Instructions: 1,250 mcg orally TAKE 2 TIMES PER WEEK. Discharge Orders: Discharge ED (Routine); Ordered 03/25/23 Ordered By: Herman Carcamo Referrals: Daljit Robertson DO [Primary Care Provider] - Discharge Diet: Regular Discharge Activity: Increase activity as tolerated Patient Instructions: Scalp Laceration, Head Injury (ED) Activity Restrictions/Additional Instructions: Follow-up with medical provider as directed in the next 7 to 10 days for reevaluation and to have alicia removed. You can clean laceration site with soap and water daily, but no scrubbing. Do not submerge head in any lakes or [place] or any other bodies of water until laceration is completely healed. Take medications as prescribed. Return to the ER or your medical provider if condition worsens. Please read and understand discharge instructions. Thank you for choosing [facility] for your healthcare needs today. Please realize this is an emergency room and that we are providing you with a medical screening exam and this may not be complete and all inclusive of all the testing and or work up that you may need to determine your ailment or severity of your illness. It is very important that you follow up as instructed or that you return to the Emergency Department should you have concerns or if your condition changes or worsens in any way. Coding Level of Care Code ED Winding Lathe Operator for Don Johnson
--- NOTE | 2023-03-25 13:06 | CTR_ITS ---
PROCEDURE INFORMATION: Exam: CT Head Without Contrast Exam date and time: 03/25/2023 1:30 PM Age: 73 years old Clinical indication: Injury or trauma; Fall; Blunt trauma (contusions or hematomas); Without loss of consciousness; Additional info: Fall with head injury TECHNIQUE: Imaging protocol: Computed tomography of the head without contrast. Radiation optimization: All CT scans at this facility use at least one of these dose optimization techniques: automated exposure control; mA and/or kV adjustment per patient size (includes targeted exams where dose is matched to clinical indication); or iterative reconstruction. REPORTING DATA: Count of CT and Cardiac NM exams in prior 12 months: This patient has received [address] and 0 known cardiac nuclear medicine studies in the 12 months prior to the current study. COMPARISON: CT head wo con* [id number] 11/14/2022 7:48 PM RADIATION DOSE METRICS: Total DLP (mGy-cm): 989.28 FINDINGS: Brain: There is focal encephalomalacia in the high left posterior parietal lobe, similar to the findings on 11/14/2022, consistent with chronic infarction. There is mild diffuse cerebral atrophy. There is minimal hypoattenuation in the periventricular white matter suggesting chronic microvascular disease. There is no significant mass effect or midline shift. There is no acute intracranial hemorrhage. Cerebral ventricles: There is no significant ventricular dilation. The basal cisterns are unremarkable. Paranasal sinuses: The paranasal sinuses are clear. Mastoid air cells: The mastoid air cells are clear. Bones/joints: The calvarium is intact. Soft tissues: Midline frontal scalp devendra. No scalp hematoma. CT/CT head wo con* [id number] IMPRESSION: 1. No acute intracranial abnormality. 2. Incidental findings above.
== END 2023-03-25 14:16 | disposition home or self-care (01) ==
PROVIDERS: Emergency Provider Physician Assistant; PCP Electrodiagnostic Medicine
DX: S09.8XXA Other specified injuries of head, initial encounter (principal); S01.01XA Laceration without foreign body of scalp, initial encounter; Z79.82 Long term (current) use of aspirin; Z87.891 Personal history of nicotine dependence; Z86.73 Personal history of transient ischemic attack (TIA), and cerebral infarction without residual deficits; E78.5 Hyperlipidemia, unspecified; W01.190A Fall on same level from slipping, tripping and stumbling with subsequent striking against furniture, initial encounter
CPT/HCPCS: 12001; 70450; 99284

== ENCOUNTER 2023-05-02 08:17 | Outpatient (CLI) | payer MEDICARE, OTHER, SELFPAY ==
--- NOTE | 2023-05-02 08:26 | MM_ITS ---
WS: [id number] BILATERAL SCREENING DIGITAL TOMOSYNTHESIS MAMMOGRAM WITH CAD HISTORY: SCREENING COMPARISON: 03/08/2022, 06/23/2020 Bilateral CC and MLO views with tomosynthesis and synthetic mammography submitted. Computer aided det ection analyzed. Breast composition: There are scattered areas of fibroglandular density. No suspicious masses, microc alcifications or architectural distortion. Scattered asymmetries in the LEFT breast are stable. Focal asymmetry seen on the RIGHT MLO projection does not persist on the tomosynthesis. IMPRESSION: MM/[place] [id number] BI-RADS: 2-Benign FOLLOW UP: 1 Year Follow-up
== END 2023-05-02 08:18 | disposition home or self-care (01) ==
PROVIDERS: PCP Electrodiagnostic Medicine; Visit Provider Electrodiagnostic Medicine
DX: Z12.31 Encounter for screening mammogram for malignant neoplasm of breast (principal)
CPT/HCPCS: 77063; 77067

== ENCOUNTER → 2023-09-11 15:15 | Outpatient (BNVA) | payer MEDICARE, OTHER, SELFPAY | PROVIDERS: PCP Electrodiagnostic Medicine; Visit Provider Internal Medicine Cardiovascular Disease | DX: I35.0 Nonrheumatic aortic (valve) stenosis (principal); R03.0 Elevated blood-pressure reading, without diagnosis of hypertension; E78.5 Hyperlipidemia, unspecified; R94.31 Abnormal electrocardiogram [ECG] [EKG]; Z86.73 Personal history of transient ischemic attack (TIA), and cerebral infarction without residual deficits | CPT/HCPCS: 99214 ==

== ENCOUNTER 2024-02-17 10:07 | Observation (INO) | payer MEDICARE, OTHER, SELFPAY ==
[2024-02-17] VITALS (16 sets, daily range): BP systolic 105–167; BP diastolic 48–82; PULSE 50–76; RESP 15–20; TEMP 36.5–36.9; O2SAT 92–98; BMI 31.9
--- NOTE | 2024-02-17 10:21 | XRR_ITS ---
PROCEDURE INFORMATION: Exam: XR Chest Exam date and time: 02/17/2024 10:47 AM Age: 74 years old Clinical indication: Dyspnea; Additional info: CVA symtpoms TECHNIQUE: Imaging protocol: Radiologic exam of the chest. Views: 1 view. COMPARISON: CR XR chest 1V portable [id number] 11/14/2022 7:32 PM FINDINGS: Lungs: Unremarkable. No consolidation. Pleural spaces: Unremarkable. No pleural effusion. No pneumothorax. Heart/Mediastinum: Unremarkable. No cardiomegaly. Bones/joints: Unremarkable. XR/XR chest 1V portable [id number] IMPRESSION: No acute findings.
--- NOTE | 2024-02-17 10:21 | CTR_ITS ---
PROCEDURE INFORMATION: Exam: CT Head Without Contrast Exam date and time: 02/17/2024 10:40 AM Age: 74 years old Clinical indication: Stroke-like symptoms; Speech disturbance and visual disturbance; Additional info: Symptoms of acute stroke TECHNIQUE: Imaging protocol: Computed tomography of the head without contrast. Radiation optimization: All CT scans at this facility use at least one of these dose optimization techniques: automated exposure control; mA and/or kV adjustment per patient size (includes targeted exams where dose is matched to clinical indication); or iterative reconstruction. Other technique: STROKE PROTOCOL was implemented. COMPARISON: CT head wo con* [id number] 03/25/2023 1:30 PM RADIATION DOSE METRICS: Total DLP (mGy-cm): 1114.75 FINDINGS: Brain: Remote area of ischemia in the left posterior parietal region. No acute large territorial infarct hemorrhage mass effect or midline shift. Cerebral ventricles: No ventriculomegaly. Paranasal sinuses: Visualized sinuses are unremarkable. No fluid levels. Mastoid air cells: Visualized mastoid air cells are well aerated. Bones: Unremarkable. No acute fracture. Soft tissues: Unremarkable. CT/CT head thrombolytic [id number] IMPRESSION: No acute intracranial abnormality is appreciated. Remote area of infarction in the left posterior parietal region ASSESSMENT: ASPECTS ([place] Stroke Program Early CT Score) is 10.
--- NOTE | 2024-02-17 10:21 | CTR_ITS ---
PROCEDURE INFORMATION: Exam: CTA Head With Contrast, Arteriography Exam date and time: 02/17/2024 10:42 AM Age: 74 years old Clinical indication: Stroke-like symptoms; Speech disturbance; Additional info: Expressive aphasia TECHNIQUE: Imaging protocol: Computed tomographic angiography of the head with contrast. Exam focused on the arteries. 3D rendering (Not supervised by radiologist): MIP and/or 3D reconstructed images were created by the technologist. Radiation optimization: All CT scans at this facility use at least one of these dose optimization techniques: automated exposure control; mA and/or kV adjustment per patient size (includes targeted exams where dose is matched to clinical indication); or iterative reconstruction. Contrast material: OMNI 350; Contrast volume: 100 ml; Contrast route: INTRAVENOUS (IV); COMPARISON: CT head thrombolytic [id number] 02/17/2024 10:40 AM RADIATION DOSE METRICS: Total DLP (mGy-cm): 464.02 FINDINGS: ANTERIOR CIRCULATION: Right internal carotid artery: Intracranial segment is patent with no significant stenosis. No aneurysm. Right middle cerebral artery: No occlusion or significant stenosis. No aneurysm. Right anterior cerebral artery: No occlusion or significant stenosis. No aneurysm. Left internal carotid artery: Intracranial segment is patent with no significant stenosis. No aneurysm. Left middle cerebral artery: No occlusion or significant stenosis. No aneurysm. Left anterior cerebral artery: No occlusion or significant stenosis. No aneurysm. POSTERIOR CIRCULATION: Right vertebral artery: No occlusion or significant stenosis. No aneurysm. Left vertebral artery: No occlusion or significant stenosis. No aneurysm. Basilar artery: No occlusion or significant stenosis. No aneurysm. Right posterior cerebral artery: No occlusion or significant stenosis. No aneurysm. Left posterior cerebral artery: Attenuation of the left posterior cerebral artery. Findings may relate to stenosis and infarction Brain: Remote area of infarction in the left posterior parietal region Cerebral ventricles: No ventriculomegaly. Bones/joints: Unremarkable. No acute fracture. Soft tissues: Unremarkable. PROCEDURE INFORMATION: Exam: CTA Neck With Contrast Exam date and time: 02/17/2024 10:42 AM Age: 74 years old Clinical indication: Stroke-like symptoms; Speech disturbance; Additional info: Expressive aphasia TECHNIQUE: Imaging protocol: Computed tomographic angiography of the neck with contrast. Exam focused on the cervical segments of the vasculature. 3D rendering (Not supervised by radiologist): MIP and/or 3D reconstructed images were created by the technologist. Radiation optimization: All CT scans at this facility use at least one of these dose optimization techniques: automated exposure control; mA and/or kV adjustment per patient size (includes targeted exams where dose is matched to clinical indication); or iterative reconstruction. Contrast material: OMNI 350; Contrast volume: 100 ml; Contrast route: INTRAVENOUS (IV); COMPARISON: MR angio neck w con* [id number] 07/17/2019 10:54 AM RADIATION DOSE METRICS: Total DLP (mGy-cm): 464.02 FINDINGS: Right common carotid artery: No stenosis. No dissection or occlusion. Right internal carotid artery: No stenosis of the extracranial segment. No dissection or occlusion. Right external carotid artery: No occlusion or stenosis of the origin. Left common carotid artery: No stenosis. No dissection or occlusion. Left internal carotid artery: No stenosis of the extracranial segment. No dissection or occlusion. Left external carotid artery: No occlusion or stenosis of the origin. Right vertebral artery: No stenosis. No dissection or occlusion. Left vertebral artery: No stenosis. No dissection or occlusion. Soft tissues: Normal. No significant soft tissue swelling. Bones/joints: No acute fracture. CT/CT angio headneck* [id number] IMPRESSION: Attenuation of the left posterior cerebral artery. Findings are suspicious for age indeterminate stenosis/infarct. There is a remote area of infarction in the left posterior parietal region IMPRESSION: No stenosis or occlusion. REFERENCES: NASCET CRITERIA. The degree of stenosis in the cervical segment of the internal carotid artery is based on NASCET criteria. Normal is no stenosis. Mild is less than 50% stenosis. Moderate is 50-69% stenosis. Severe is 70% to 99% stenosis. Total occlusion is no detectable patent lumen.
--- NOTE | 2024-02-17 10:22 | ECG_ITS ---
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 Measurements Intervals [place] Rate: 63 P: 47 [place]: 216 QRS: 14 QRSD: 82 T: 60 QT: 412 QTc: 424 Interpretive Statements SINUS RHYTHM WITH FIRST DEGREE AV BLOCK INTERPRETATION BASED ON A DEFAULT AGE OF 40 YEARS Compared to ECG 11/14/2022 19:11:27 First degree AV block now present Ventricular premature complex(es) no longer present ST (T wave) deviation no longer present Electronically Signed On 02-17-2024 20:29:22 CDT by Julia Nolasco M.D. [email or web address]
--- NOTE | 2024-02-17 10:23 | ED_ITS ---
HPI - Neuro Symptoms/Deficit 2 General: Chief Complaint: Neuro Symptoms/Deficit Stated Complaint: trouble communicating, tingling feeling Time Seen by Provider: 02/17/24 10:12 History of Present Illness: Patient presents to the ER with complaints of not been able to get her words out. Patient's noticed this approximately 7 AM. Patient's last known well was last night at approximately 2300. Patient is able to get words out with moderate difficulty. She is able answer questions appropriately and she is alert and oriented x 4. Patient does not have any other neurodeficits noted at this time. Patient has a history of a TIA in the past. Patient is on 325 mg of aspirin daily. 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 Patent foramen ovale Aortic stenosis Family history of coronary artery disease Family history of cancer Family history of diabetes mellitus Family history of hyperlipidemia Family hx of hypertension Atherosclerosis Chronic migraine CVA (cerebral vascular accident) Surgical History Hx of hysterectomy Family History Other CAD (coronary artery disease) Cancer Diabetes Family history of premature coronary artery disease Hyperlipidemia Hypertension Denies family history of Clotting disorder Dementia Psychiatric illness Chronic kidney disease (CKD) Suicide Anesthesia complication Bleeding disorder Lung disease Stroke Social History Smoking and tobacco/nicotine status: former use of tobacco/nicotine Second hand smoke exposure: Yes Alcohol intake: current Alcohol intake frequency: holidays/special occasions only Alcohol type: wine Substance/Drug Use: never NIH stroke score 2 NIHSS: Level Of Consciousness - 1a: 0 Level Of Consciousness Questions - 1b: Both Correct Level Of Consciousness Commands - 1c: Both Correct Best Gaze - 2: Normal Visual Lennon - 3: No Visual Loss Facial Palsy - 4: N ormal Motor Arm Right - 5: No Drift Motor Arm Left - 5: No Drift Motor Leg Right - 6: No Drift Motor Leg Left - 6: No Drift Limb Ataxia - 7: A bsent Sensory - 8: Normal Best Language - 9: Mild/Moderate Aphasia D ysarthia - 10: Normal Extinction And Inattention - 11: 0 Score: Total Score: 1 Physical Exam 2 Const: COMMON NORMALS: no acute distress, average body habitus, patient oriented x3, healthy appearing, alert and well nourished; limitations (Moderate expressive aphasia) HENMT: COMMON NORMALS: normocephalic, atraumatic, hearing grossly normal bilaterally, external ears normal, Normal external nose present and moist oral mucous membranes HEAD & SCALP: normocephalic and atraumatic NOSE: Normal external nose present EXTERNAL EAR: Yes external ears normal Eye: COMMON NORMALS: Equal, round and reactive pupils present, EOMs intact bilaterally, conjunctivae normal and no scleral icterus CONJUNCTIVA: Yes conjunctivae normal PUPIL: Yes Equal, round and reactive pupils present Neck/C-Spine: COMMON NORMALS: full ROM, no lymphadenopathy, supple, no meningeal signs, no JVD and Thyroid normal THYROID: Thyroid normal Chest: COMMONS NORMALS: normal inspection of the chest and normal palpation of entire chest wall Resp: COMMON NORMALS: normal respiratory effort, No retractions, No use of accessory muscles and clear to auscultation bilaterally AUSCULTATION: clear to auscultation bilaterally Cardio: COMMON NORMALS: no JVD, regular rate, regular rhythm, S1 normal heart sound present, S2 normal heart sound present, No gallops present (Cardio), No clicks present (Cardio) and No rub (Cardio); negative for No murmurs present (Cardio) (2 over 6 systolic ejection murmur) RATE: regular rate RHYTHM: regular rhythm HEART SOUNDS: S1 normal heart sound present and S2 normal heart sound present GI: COMMON NORMALS: Normal to inspection, nondistended, normoactive bowel sounds present, Soft to palpation, non-tender, No hepatosplenomegaly present and no masses PALPATION: Yes Soft to palpation and Yes No hepatosplenomegaly present Neuro: COMMON NORMALS: patient oriented x3 SENSORIUM/ORIENTATION: Yes alert MENINGEAL SIGNS: Yes no meningeal signs Course 2 Vital Signs: Vital signs: Vital Signs Pulse Rate 64 02/17/24 11:00 Respiratory Rate 18 02/17/24 11:00 Blood Pressure 167/82 02/17/24 11:00 Pulse Oximetry 96 02/17/24 11:00 Oxygen Delivery Me thod Room Air 02/17/24 11:00 MDM - Neuro Symptoms/Deficit Medical Decision Making Patient was worked up in normal strokelike fashion. Lab work, chest x-ray, head CT all essentially negative, head neck CTA did show attenuation of an area of the left posterior cerebral artery suspicious for age-indeterminate stenosis or infarct. During her ER stay patient speech did become smooth and regular again. It was discussed with the patient she probably had a TIA. It was suggested that she go inpatient observation for further workup. Dr. Cope was consulted who agreed to place patient in observation. Differential Diagnosis Likely cerebrovascular accident and transient cerebral ischemia; Unlikely carpal tunnel syndrome, convulsions, delirium, subarachnoid hemorrhage, peripheral neuropathy or multiple sclerosis Medical Records I reviewed the patient's medical records. Lab Data I reviewed the patient's lab results. 02/17/24 10:29 02/17/24 10:29 Radiology Impressions Chest X-Ray 02/17/24 10:21 IMPRESSION: No acute findings. Head CT 02/17/24 10:21 IMPRESSION: No acute intracranial abnormality is appreciated. Remote area of infarction in the left posterior parietal region ASSESSMENT: ASPECTS ([place] Stroke Program Early CT Score) is 10. Head/Neck CTA 02/17/24 10:21 IMPRESSION: Attenuation of the left posterior cerebral artery. Findings are suspicious for age indeterminate stenosis/infarct. There is a remote area of infarction in the left posterior parietal region IMPRESSION: No stenosis or occlusion. REFERENCES: NASCET CRITERIA. The degree of stenosis in the cervical segment of the internal carotid artery is based on NASCET criteria. Normal is no stenosis. Mild is less than 50% stenosis. Moderate is 50-69% stenosis. Severe is 70% to 99% stenosis. Total occlusion is no detectable patent lumen. Laboratory Results WBC 6.43 10^3/uL (3.29-11.43) 02/17/24 10: RBC 4.27 10^6/uL (3.85-5.65) 02/17/24 10:29 Hgb 12.70 g/dL (11.27-16.99) 02/17/24 10: Hct 39.7 % (36-47) 02/17/24 10: MCV 93.0 fl (85-98) 02/17/24 10:29 MCH 29.7 pg (27-33) 02/17/24 10:29 MCHC 32.0 g/dL (30-55) 02/17/24 10:29 RDW 13.3 % (12.1-15.1) 02/17/24 10:29 Plt Count 188 10^3/cmm (157-399) 02/17/24 10:29 MPV 10.7 fL (7.4-10.4) H 02/17/24 10:29 Neut % (Auto) 70.7 % 02/17/24 10:29 Lymph % (Auto) 16.5 % 02/17/24 10:29 [place] % (Auto) 7.9 % 02/17/24 10:29 Eos % (Auto) 4.0 % 02/17/24 10:29 Baso % (Auto) 0.6 % 02/17/24 10:29 Neut # (Auto) 4.54 10^3/uL (1.8-7.7) 02/17/24 10:29 Lymph # (Auto) 1.1 10^3/uL (0.8-4.8) 02/17/24 10:29 [place] # (Auto) 0.5 10^3/uL (0.2-0.9) 02/17/24 10:29 Eos # (Auto) 0.3 10^3/uL (0.0-0.8) 02/17/24 10:29 Baso # (Auto) 0.0 10^3/uL (0.0-0.1) 02/17/24 10:29 Nucleated RBC % (auto) 0 % 02/17/24 10:29 Nucleated RBCs # 0.0 /100WBC 02/17/24 10:29 PT 12.40 SECONDS (12.1-14.9) 02/17/24 10:29 INR 0.90 (0.8-1.2) 02/17/24 10:29 APTT 25.3 SECONDS (23.9-36.7) 02/17/24 10:29 Sodium 138 mmol/L (136-145) 02/17/24 10:29 Potassium 4.1 mmol/L (3.5-5.1) 02/17/24 10:29 Chloride 102 mmol/L (98-107) 02/17/24 10:29 Carbon Dioxide 28 mmol/L (22-29) 02/17/24 10:29 Anion Gap 12.1 (5-19) 02/17/24 10:29 BUN 26 mg/dL (8-23) H 02/17/24 10:29 Creatinine 0.5 mg/dL (0.5-0.9) 02/17/24 10:29 GFR Calculation Not Reportable 02/17/24 10:29 Glucose 97 mg/dL (65-115) 02/17/24 10:29 POC Glucose 96 mg/dL (70-110) 02/17/24 10:18 Calculated Osmolality 291 mOsm/kg (285-295) 02/17/24 10:29 Calcium 8.5 mg/dL (8.5-10.5) 02/17/24 10:29 Magnesium 2.0 mg/dL (1.7-2.3) 02/17/24 10:29 Total Bilirubin 0.4 mg/dL (0.15-1.2) 02/17/24 10:29 AST 18 U/L (0-32) 02/17/24 10:29 ALT 15 U/L (0-33) 02/17/24 10:29 Alkaline Phosphatase 114 U/L (35-105) H 02/17/24 10:29 Troponin T Baseline 10 ng/L (0-10) 02/17/24 10:29 C-Reactive Protein 3.0 mg/L (0.0-4.9) 02/17/24 10:29 Total Protein 6.6 g/dL (6.6-8.7) 02/17/24 10:29 Albumin 3.8 g/dL (3.5-5.2) 02/17/24 10:29 Globulin 2.8 g/dL (1.3-4.6) 02/17/24 10:29 TSH 2.18 uIU/mL (0.27-4.20) 02/17/24 10:29 Ethyl Alcohol < 10 mg/dL (0-10) 02/17/24 10:29 All radiology interpretation(s) finalized by discharge EKG Data EKG 1: I personally reviewed and interpreted this EKG as follows: EKG interpretation date: 02/17/24 EKG interpretation time: 10:21 Prior EKG tracings: available for review Interpretation: Ventricular rate 63 bpm, LA interval 216, QRS duration 82, QTc of 420, sinus rhythm with first-degree AV block Discharge Plan Discharge Patient Disposition: Placed in Observation Clinical Impression: Brain TIA Coding Level of Care Code ED Pulmonary Physical Therapist for Don Johnson
[2024-02-17 10:24] LABS: Glucose Point of Care 96 mg/dL (70-110)
[2024-02-17 10:34] LABS: Basophils % 0.6 %; Eosinophils # 0.3 10^3/uL (0.0-0.8); Hematocrit 39.7 % (36-47); Lymphocytes # 1.1 10^3/uL (0.8-4.8); Lymphocytes % 16.5 %; Mean Corpuscular Hemoglobin 29.7 pg (27-33); Mean Platelet Volume 10.7 fL (7.4-10.4); Monocytes # 0.5 10^3/uL (0.2-0.9); Monocytes % 7.9 %; Neutrophils # 4.54 10^3/uL (1.8-7.7); Neutrophils % 70.7 %; Nucleated Red Blood Cells % 0 %; Platelet Count 188 10^3/cmm (157-399); Red Blood Count 4.27 10^6/uL (3.85-5.65); Red Cell Distribution Width 13.3 % (12.1-15.1); White Blood Count 6.43 10^3/uL (3.29-11.43)
[2024-02-17] MEDS: iohexol 350 mg/mL 500 mL Btl (per mL) IV (10:47)
[2024-02-17 10:56] LABS: Troponin(5th) Baseline 10 ng/L (0-10)
[2024-02-17 11:00] LABS: Partial Thromboplastin Time 25.3 SECONDS (23.9-36.7)
[2024-02-17 11:05] LABS: Alanine Aminotransferase 15 U/L (0-33); Albumin Level 3.8 g/dL (3.5-5.2); Alkaline Phosphatase 114 U/L (35-105); Anion Gap 12.1 (5-19); Aspartate Amino Transferase 18 U/L (0-32); Blood Urea Nitrogen 26 mg/dL (8-23); Calcium 8.5 mg/dL (8.5-10.5); Carbon Dioxide 28 mmol/L (22-29); Chloride 102 mmol/L (98-107); Creatinine Clr Calc Pharmacy 56.6792; Globulin 2.8 g/dL (1.3-4.6); Glucose 97 mg/dL (65-115); Osmolality Calculated 291 mOsm/kg (285-295); Potassium 4.1 mmol/L (3.5-5.1); Sodium 138 mmol/L (136-145); Thyroid Stimulating Hormone 2.18 uIU/mL (0.27-4.20); Total Bilirubin 0.4 mg/dL (0.15-1.2); Total Protein 6.6 g/dL (6.6-8.7)
[2024-02-17 11:17] LABS: Alcohol Level < 10 mg/dL (0-10)
--- NOTE | 2024-02-17 12:39 | ECG_ITS ---
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 Measurements Intervals [place] Rate: 58 P: 36 GA: 215 QRS: 3 QRSD: 79 T: 49 QT: 435 QTc: 430 Interpretive Statements SINUS BRADYCARDIA WITH FIRST DEGREE AV BLOCK Compared to ECG 02/17/2024 10:21:26 Sinus rhythm no longer present Electronically Signed On 02-17-2024 20:43:21 CDT by Julia Nolasco M.D. [email or web address] health [email or web address] medical [email or web address]/[id number]
[2024-02-17 12:49] LABS: Troponin 5 2HR 9.19 ng/L (0-10)
--- NOTE | 2024-02-17 13:00 | MRR_ITS ---
PROCEDURE INFORMATION: Exam: MR Head Without Contrast Exam date and time: 02/17/2024 2:39 PM Age: 74 years old Clinical indication: Speech disturbance; Patient HX: New onset expressive aphasia progressively resolving, history of stroke a few years ago; Additional info: TIA TECHNIQUE: Imaging protocol: Magnetic resonance imaging of the head without contrast. COMPARISON: CT angio headneck* [id number] 02/17/2024 10:42 AM FINDINGS: Brain: An old infarct involves the left parieto-occipital lobe region. Cerebral ventricles: Normal. No ventriculomegaly. Bones: Unremarkable. Paranasal sinuses: Normal as visualized. No acute sinusitis. Mastoid air cells: Normal as visualized. No mastoid effusion. Orbital cavities: Unremarkable. Soft tissues: Unremarkable. MR/MR head wo con* [id number] IMPRESSION: 1. No acute findings. 2. Old left-sided infarct noted
--- NOTE | 2024-02-17 13:02 | USCV_ITS ---
Jim Beena Age: 74 Gender: F : 1950 Exam Date: 02/17/2024 13:52 Ordering Phys: Halle Cope MD Technologist: Pillo Hess [place] [facility] [place]: tia BP: 151 / 69 HR: 61 Rhythm: Sinus Technical Quality: Adequate MEASUREMENTS (Male / Female) Normal Values 2D ECHO LV Diastolic Diameter PLAX 4.0 cm 4.2 - 5.9 / 3.9 - 5.3 cm IVS Diastolic Thickness 1.2 cm 0.6 - 1.0 / 0.6 - 0.9 cm IVS Systolic Thickness 1.6 cm LVPW Diastolic Thickness 1.5 cm 0.6 - 1.0 / 0.6 - 0.9 cm LVPW Systolic Thickness 1.9 cm LVOT Diameter 2.3 cm LV Ejection Fraction 2D Teich 85.2 % LV Ejection Fraction MOD 2C 66.1 % LV Ejection Fraction 2C AL 66.9 % LA Diameter 3.7 cm RA Systolic Volume 4C AL 27.7 ml RA Systolic Volume 4C MOD 27.3 ml LA Sys Volume AL 37.5 cm cubed LA Sys Volume Index AL 20.8 cm cubed/m squared Aorta at Sinotubular Diameter 2.4 cm IVC Diameter 1.3 cm M-MODE LA Ao Ratio MM 1.3 AV Cusp Separation MM 0.8 cm DOPPLER AV Peak Velocity 302.3 cm/s LVOT Peak Velocity 61.0 cm/s AV Area Cont Eq vti 0.7 cm squared AV Area Cont Eq pk 0.8 cm squared MV Peak Velocity 89.0 cm/s MV Area PHT 6.9 cm squared Mitral E to A Ratio 0.8 PV Peak Velocity 76.0 cm/s RV Ejection Time 0.3 s FINDINGS Left Ventricle Normal left ventricular size and systolic function, EF 67%.moderate left ventricular hypertrophy. No regional wall motion abnormalities. Grade I/IV diastolic dysfunction (abnormal relaxation filling pattern), normal to mildly elevated filling pressures. Right Ventricle The right ventricle is normal in size and function. Right Atrium The right atrium is normal in size. Left Atrium Mildly increased left atrial size. Mitral Valve No gross abnormalities noted Aortic Valve Severe low gradient aortic valve stenosis with a peak velocity of 3.02 m/s, peak gradient of 38 and a mean gradient of 27 mmHg. Calculated valve area was 0.73 cm squared. Tricuspid Valve Mild tricuspid valve regurgitation. Pulmonic Valve Not well-visualized Pericardium Normal pericardium without effusion. Aorta Normal ascending aorta dimension. IVC Normal inferior vena cava. CONCLUSIONS Normal left ventricular size and systolic function, EF 67%.moderate left ventricular hypertrophy. No regional wall motion abnormalities. Grade I/IV diastolic dysfunction (abnormal relaxation filling pattern), normal to mildly elevated filling pressures. Severe low gradient aortic valve stenosis with a peak velocity of 3.02 m/s, peak gradient of 38 and a mean gradient of 27 mmHg. Calculated valve area was 0.73 cm squared. Mildly increased left atrial size. Mild tricuspid valve regurgitation. There is no pericardial effusion. There are no intracardiac masses. Compared to the study from 10/18/2022 there is worsening of the aortic valve stenosis.(Appears to be normal flow low gradient stenosis) Dr Julia Nolasco MD FACC (Electronically Signed) Final Date: 17 February 2024 16:41 S
[2024-02-17 13:16] LABS: Troponin 5 2HR Delta -0.81 ABS# (0-10)
--- NOTE | 2024-02-17 13:42 | P.HP_ITS ---
Providers/Chief Complaint 2 Admitting Physician: Halle Cope MD Primary Care Provider: Daljit Robertson DO Chief Complaint: trouble communicating, tingling feeling History of Present Illness Beena Fernandez is a 74 year old female with past medical history of hypertension, hyperlipidemia, TIA, migraine, aortic stenosis was brought in by family with complaint of unable to find words this morning. As per the who is at bedside he said she was moving all her extremities normally but was unable to find words and seemed lost. There is no history of fever, cold, cough, chest pain, shortness of breath, urinary or bowel complaints. She was last known well at 11 PM last night. As per ER physician she still had difficulty to get words out but no neurological deficits. On my evaluation, she was alert and awake, moving all her extremities equally, was able to speak in full sentences and remember words, but still had slow recall of words. Review of Systems 2 General: Reports: 10 or more systems reviewed and unremarkable except in HPI and below Medications/Allergies Home Medications Medication Instructions Recorded Confirmed Last Taken Type aspirin 325 mg tablet 325 mg PO DAILY 03/26/20 09/12/23 07/04/20 History atorvastatin 40 mg tablet 40 mg PO DAILY 03/26/20 09/12/23 07/06/20 History loperamide 2 mg tablet (Imodium 2 mg PO DAILY 07/07/20 09/12/23 07/07/20 History A-D) amitriptyline 10 mg tablet 20 mg PO DAILY 11/25/20 09/12/23 Unknown History biotin 10 mg tablet 10 mg PO DAILY 11/25/20 09/12/23 Unknown History losartan 100 mg tablet 25 mg PO DAILY 08/14/22 09/12/23 Unknown History ergocalciferol (vitamin D2) 1,250 See Rx Instructions .Route DAILY 09/11/23 09/12/23 Unknown History mcg (50,000 unit) capsule (Vitamin D2) lactobacillus combination no.9 4 4,000 mmu cells PO DAILY 09/11/23 09/12/23 Unknown History billion cell capsule (Adult 50 Plus Probiotic) metoprolol succinate 25 mg See Rx Instructions .Route 11/26/23 Unknown Rx tablet,extended release 24 hr .COMPLEX #90 tabs Allergies Allergy/AdvReac Type Severity Reaction Status Date / Time No Known Allergies Allergy Verified 09/11/23 15:50 PFSH Acute 2 PFSH: Medical History Abnormal EKG Dyslipidemia Elevated blood pressure reading Old cerebrovascular accident (CVA) without late effect Patent foramen ovale Aortic stenosis Family history of coronary artery disease Family history of cancer Family history of diabetes mellitus Family history of hyperlipidemia Family hx of hypertension Atherosclerosis Chronic migraine CVA (cerebral vascular accident) Surgical History Hx of hysterectomy Family History Other CAD (coronary artery disease) Cancer Diabetes Family history of premature coronary artery disease Hyperlipidemia Hypertension Denies family history of Clotting disorder Dementia Psychiatric illness Chronic kidney disease (CKD) Suicide Anesthesia complication Bleeding disorder Lung disease Stroke Social History Smoking and tobacco/nicotine status: former use of tobacco/nicotine Second hand smoke exposure: Yes Alcohol intake: current Alcohol intake frequency: holidays/special occasions only Alcohol type: wine Substance/Drug Use: never Vitals/I&O/Wt Last Vital Signs Pulse 58 L 02/17/24 12:27 Resp 18 02/17/24 12:16 BP 151/69 02/17/24 12:27 Pulse Ox 98 02/17/24 12:27 O2 Del Method Room Air 02/17/24 12:22 Weight last 48 hrs Weight 79.243 kg Weight 72.575 kg Physical Exam 2 Narrative: She is alert awake oriented x 3, not in acute distress. Chest clear to auscultation bilaterally. Cardiovascular normal heart sounds. Abdomen NAD Extremities trace bilateral lower extremity edema noted. Neurologically able to speak in full sentences, following commands, no motor or sensory deficits noted. Data 02/17/24 10:29 02/17/24 10:29 A&P Assessment and plan (1) Brain TIA: 74 year old female with past medical history of hypertension, hyperlipidemia, TIA, migraine, aortic stenosis was brought in by family with complaint of unable to find words this morning with no weakness in extremities likely secondary to stroke/TIA Clinically back to her baseline, with no neurological deficits noted. CT head showed no acute intracranial abnormality is appreciated. Remote area of infarction in the left posterior parietal region CTA head/neck showed attenuation of the left posterior cerebral artery. Findings are suspicious for age indeterminate stenosis/infarct. There is a remote area of infarction in the left posterior parietal region Admit for observation for 24 hours Will check MRI head without contrast Check 2D echo Continue home medication aspirin 325 mg daily Hypertension-continue losartan 25 mg daily Metoprolol succinate ER 25 mg daily Hyperlipidemia-continue atorvastatin 40 mg daily Degenerative disc disease-continue amitriptyline 20 mg p.o. daily Will add p.o. Flexeril 10 mg 3 times daily as needed Vitamin D2 daily Cardiac diet DVT prophylaxis with SCD Stress ulcer prophylaxis with IV Pepcid 20 mg twice daily She is full code for now. Attestations 2 Medical Necessity Statement*: She needs observation for 24 hours monitoring for TIA/stroke workup with MRI head without contrast and 2D echo. Time Spent in Patient Care: 30 minutes Coding Level of Care Code Acute Code for Dylong Fwd Diagnoses Brain TIA G45.9 Time Spent (min) 30
[2024-02-17] MEDS: metoprolol succinate ER (24 HR) 25 mg Tablet PO (14:26)
[2024-02-17] MEDS: famotidine 20 mg/2 mL INJ IVP (14:26)
[2024-02-17] MEDS: LORazepam 0.5 mg Tablet PO (14:26)
--- NOTE | 2024-02-17 16:22 | ECG_ITS ---
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 Measurements Intervals [place] Rate: 56 P: 44 FL: 219 QRS: 10 QRSD: 76 T: 75 QT: 429 QTc: 415 Interpretive Statements SINUS BRADYCARDIA WITH FIRST DEGREE AV BLOCK NONSPECIFIC T-WAVE ABNORMALITY Compared to ECG 02/17/2024 12:39:18 T-wave abnormality now present Electronically Signed On 02-17-2024 20:46:38 CDT by Julia Nolasco M.D. [id number]
[2024-02-17] MEDS: aspirin 325 mg Tablet PO (16:44)
[2024-02-17] MEDS: meloxicam 7.5 mg tablet PO (16:44)
[2024-02-17] MEDS: atorvastatin 40 mg Tablet PO (16:44)
[2024-02-17] MEDS: losartan 50 mg Tablet 25 MG PO (16:45)
[2024-02-17 17:55] LABS: Amphetamines Screen Urine Negative (Negative); Barbiturates Screen Urine Negative (Negative); Benzodiazepines Screen Urine Negative (Negative); Cocaine Screen Urine Negative (Negative); Opiate Screen Urine Negative (Negative); PCP Screen Urine Negative (Negative); THC Screen Urine Negative (Negative)
[2024-02-17 18:01] LABS: Add Urine Microscopic? YES; Bilirubin Urine Neg (Negative); Blood Urine 2+ (Negative); Glucose Urine UA Norm (Normal); Ketones Urine Negative (Negative); Leukocyte Esterase Urine Negative (Negative); Nitrate Urine Negative (Negative); Protein Urine Neg (Negative); Specific Gravity, Urine 1.005 (1.005-1.030); Urine Appearance Clear (CLEAR); Urine Color Yellow (Yellow); Urobilinogen Urine Norm (Negative); pH Urine 7 (5-7)
[2024-02-17 18:02] LABS: Add Urine Culture? No; Bacteria Urine TRACE /hpf; RBC Urine RARE /hpf (0-2); Squamous Epithelial Cell Urine RARE /hpf (0-5)
[2024-02-18] MEDS: famotidine 20 mg/2 mL INJ IVP (01:02)
[2024-02-18 03:54] VITALS: BP 129/58; PULSE 55; RESP 15; TEMP 36.4; O2SAT 91
[2024-02-18 06:38] LABS: Basophils # 0.1 10^3/uL (0.0-0.1); Basophils % 0.6 %; Eosinophils # 0.3 10^3/uL (0.0-0.8); Eosinophils % 3.9 %; Hematocrit 42.5 % (36-47); Lymphocytes # 1.4 10^3/uL (0.8-4.8); Lymphocytes % 17.6 %; Mean Corpuscular Hemoglobin 29.7 pg (27-33); Mean Corpuscular Volume 92.8 fl (85-98); Mean Platelet Volume 10.8 fL (7.4-10.4); Monocytes # 0.5 10^3/uL (0.2-0.9); Monocytes % 6.6 %; Neutrophils # 5.71 10^3/uL (1.8-7.7); Neutrophils % 71.1 %; Nucleated Red Blood Cells % 0 %; Platelet Count 216 10^3/cmm (157-399); Red Blood Count 4.58 10^6/uL (3.85-5.65); Red Cell Distribution Width 13.5 % (12.1-15.1); White Blood Count 8.03 10^3/uL (3.29-11.43)
[2024-02-18 06:56] LABS: Anion Gap 12.9 (5-19); Blood Urea Nitrogen 19 mg/dL (8-23); Calcium 8.6 mg/dL (8.5-10.5); Carbon Dioxide 28 mmol/L (22-29); Chloride 102 mmol/L (98-107); Creatinine Clr Calc Pharmacy 59.8292; Glucose 94 mg/dL (65-115); Osmolality Calculated 290 mOsm/kg (285-295); Potassium 3.9 mmol/L (3.5-5.1); Sodium 139 mmol/L (136-145)
[2024-02-18 07:59] VITALS: BP 107/54; PULSE 57; RESP 19; TEMP 36.3; O2SAT 98
[2024-02-18 09:18] VITALS: BP 107/54
[2024-02-18] MEDS: atorvastatin 40 mg Tablet PO (09:18)
[2024-02-18] MEDS: metoprolol succinate ER (24 HR) 25 mg Tablet PO (09:18)
[2024-02-18] MEDS: meloxicam 7.5 mg tablet PO (09:18)
[2024-02-18] MEDS: aspirin 325 mg Tablet PO (09:18)
[2024-02-18] MEDS: losartan 50 mg Tablet 25 MG PO (09:18)
--- NOTE | 2024-02-18 09:31 | PC.CHAP ---
Pastoral Care Encounter/Spiritual Assessment Type of Contact [] Declined cutter operator asbestos shingle visit [] Patient/Family/Request visit [] Outpatient visit [] Follow-up visit [] Physician referral [] Code/Alert [x] Routine visit [] Staff referral [] Actively dying [] Patient sleeping [x] Family support [] [] Out of room [] Palliative care [] [] Receiving care in room [] Pre-surgical visit [] Trauma [] Long length of stay [] ICU visit [] Other: Relational/Emotional Strength [] Patient feels connected with others/family/visitors/staff [] Distress [] Loneliness/isolation [] Abandonment Spirituality of Patient [x] Person of Nicki [] Attends Druze of their Nicki [x] Believes in Prayer [] Reads Bible or Episcopal materials [] There are Spiritual issues to be addressed Fire Prevention Forester Interventions [x] Prayer [x] Active listening [] Non-anxious presence [] Spiritual/emotional support [] Crisis/trauma care [] Spiritual counseling [] Bereavement support [] Provided bereavement packet [x] Provided Bible/devotional materials [] Provided toy/stuffed animal, coloring book to patient or family member [] Provided Communion [] Anointing/[place] [] Salvation [x] Completed spiritual assessment [] Other: Impact on Illness or Injury [] Angry [] Fearful [] Anxious [] Often cries [] Exhaustion [] Unable to work [] Unable to attend baptist [] Unable to walk/stand [] Unable to read [] Unable to drive [] Unable to eat/drink [] Unable to sleep [] Unable to be with family [] Patient intubated [] Other: Summary Time spent with patient 15 min
--- NOTE | 2024-02-18 10:25 | P.DS_ITS ---
Discharge Providers Date of Admission: 02/17/24 12:08 Date of Discharge: February 18, 2024 Attending Provider at Admission: Halle Cope MD Attending Provider at Discharge: Halle Cope MD Primary Care Provider: Daljit Robertson DO Diagnoses at Discharge Discharge Diagnosis (1) Brain TIA: Status: Acute Reason for Visit Reason for Visit: trouble communicating, tingling feeling Brief History: 74 year old female with past medical his tory of hypertension, hyperlipidemia, TIA, migraine, aortic stenosis was brought in by family with complaint of unable to find words this morning. As per the who is at bedside he said she was moving all her extremities normally but was unable to find words and seemed lost. There is no history of fever, cold, cough, chest pain, shortness of breath, urinary or bowel complaints. She was last known well at 11 PM last night. As per ER physician she still had difficulty to get words out but no neurological deficits. On my evaluation, she was alert and awake, moving all her extremities equally, was able to speak in full sentences and remember words, but still had slow recall of words. Hospital Course Hospital Course She is status alert awake oriented x 3 during her hospital stay, with no neurological deficits. 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 She also had a 2D echo done which showed slight worsening of aortic stenosis but otherwise no significant abnormalities. She is doing well back to her baseline, will discharge her home today with p.o. Plavix 75 mg daily in addition to her usual home medications. She had this TIA-like episode on existing p.o. aspirin 325 mg hence will add Plavix 75 mg daily to the regimen. Follow-up with Dr. Robertson, PCP in 1 week and follow-up with Dr. Nolasco in cardiology clinic in 2 weeks. Physical Exam Narrative: She is alert awake oriented x 3, not in acute distress. Chest clear to auscultation bilaterally. Cardiovascular normal heart sounds. Abdomen NAD Extremities trace bilateral lower extremity edema noted. Neurologically able to speak in full sentences, following commands, no motor or sensory deficits noted. Discharge Data Studies Completed and Pending Completed Studies During Hospitalization Category Date Time Status CT angio headneck* [id number] Stat Cat Scan 02/17/24 10:[address] head thrombolytic [id number] Stat Cat Scan 02/17/24 10:21 Completed XR chest 1V portable [id number] Stat Exams 02/17/24 10:21 Completed MR head wo con* [id number] Stat MRI 02/17/24 13:00 Completed CV. echo complete* [id number] Stat Ultrasound 02/17/24 13:02 Completed Radiology Impressions Chest X-Ray 02/17/24 10:21 IMPRESSION: No acute findings. Head CT 02/17/24 10:21 IMPRESSION: No acute intracranial abnormality is appreciated. Remote area of infarction in the left posterior parietal region ASSESSMENT: ASPECTS ([place] Stroke Program Early CT Score) is 10. Head/Neck CTA 02/17/24 10:21 IMPRESSION: Attenuation of the left posterior cerebral artery. Findings are suspicious for age indeterminate stenosis/infarct. There is a remote area of infarction in the left posterior parietal region IMPRESSION: No stenosis or occlusion. REFERENCES: NASCET CRITERIA. The degree of stenosis in the cervical segment of the internal carotid artery is based on NASCET criteria. Normal is no stenosis. Mild is less than 50% stenosis. Moderate is 50-69% stenosis. Severe is 70% to 99% stenosis. Total occlusion is no detectable patent lumen. Head MRI 02/17/24 13:00 IMPRESSION: 1. No acute findings. 2. Old left-sided infarct noted Laboratory Results WBC 8.03 10^3/uL (3.29-11.43) 02/18/24 06:11 RBC 4.58 10^6/uL (3.85-5.65) 02/18/24 06:11 Hgb 13.60 g/dL (11.27-16.99) 02/18/24 06:11 Hct 42.5 % (36-47) 02/18/24 06:11 MCV 92.8 fl (85-98) 02/18/24 06:11 MCH 29.7 pg (27-33) 02/18/24 06:11 MCHC 32.0 g/dL (30-55) 02/18/24 06:11 RDW 13.5 % (12.1-15.1) 02/18/24 06:11 Plt Count 216 10^3/cmm (157-399) 02/18/24 06:11 MPV 10.8 fL (7.4-10.4) H 02/18/24 06:11 Neut % (Auto) 71.1 % 02/18/24 06:11 Lymph % (Auto) 17.6 % 02/18/24 06:11 [place] % (Auto) 6.6 % 02/18/24 06:11 Eos % (Auto) 3.9 % 02/18/24 06:11 Baso % (Auto) 0.6 % 02/18/24 06:11 Neut # (Auto) 5.71 10^3/uL (1.8-7.7) 02/18/24 06:11 Lymph # (Auto) 1.4 10^3/uL (0.8-4.8) 02/18/24 06:11 [place] # (Auto) 0.5 10^3/uL (0.2-0.9) 02/18/24 06:11 Eos # (Auto) 0.3 10^3/uL (0.0-0.8) 02/18/24 06:11 Baso # (Auto) 0.1 10^3/uL (0.0-0.1) 02/18/24 06:11 Nucleated RBC % (auto) 0 % 02/18/24 06:11 Nucleated RBCs # 0.0 /100WBC 02/18/24 06:11 PT 12.40 SECONDS (12.1-14.9) 02/17/24 10:29 INR 0.90 (0.8-1.2) 02/17/24 10:29 APTT 25.3 SECONDS (23.9-36.7) 02/17/24 10:29 Sodium 139 mmol/L (136-145) 02/18/24 06:11 Potassium 3.9 mmol/L (3.5-5.1) 02/18/24 06:11 Chloride 102 mmol/L (98-107) 02/18/24 06:11 Carbon Dioxide 28 mmol/L (22-29) 02/18/24 06:11 Anion Gap 12.9 (5-19) 02/18/24 06:11 BUN 19 mg/dL (8-23) 02/18/24 06:11 Creatinine 0.6 mg/dL (0.5-0.9) 02/18/24 06:11 GFR Calculation Not Reportable 02/18/24 06:11 Glucose 94 mg/dL (65-115) 02/18/24 06:11 POC Glucose 96 mg/dL (70-110) 02/17/24 10:18 Calculated Osmolality 290 mOsm/kg (285-295) 02/18/24 06:11 Calcium 8.6 mg/dL (8.5-10.5) 02/18/24 06:11 Magnesium 2.0 mg/dL (1.7-2.3) 02/17/24 10:29 Total Bilirubin 0.4 mg/dL (0.15-1.2) 02/17/24 10:29 AST 18 U/L (0-32) 02/17/24 10:29 ALT 15 U/L (0-33) 02/17/24 10: Alkaline Phosphatase 114 U/L (35-105) H 02/17/24 10:29 Troponin T Baseline 10 ng/L (0-10) 02/17/24 10:29 Troponin T 120 Minute 9.19 ng/L (0-10) 02/17/24 12:23 Delta Troponin T -0.81 ABS# (0-10) L 02/17/24 12:23 Troponin T Hi Sens 6Hr 10.10 ng/L (0-10) H 02/17/24 16:00 Troponin T Hi Sens 6Hr Delta 0.10 ng/L (0-12) 02/17/24 16:00 C-Reactive Protein 3.0 mg/L (0.0-4.9) 02/17/24 10:29 Total Protein 6.6 g/dL (6.6-8.7) 02/17/24 10:29 Albumin 3.8 g/dL (3.5-5.2) 02/17/24 10:29 Globulin 2.8 g/dL (1.3-4.6) 02/17/24 10:29 TSH 2.18 uIU/mL (0.27-4.20) 02/17/24 10:29 Urine Color Yellow (Yellow) 02/17/24 15:04 Urine Appearance Clear (CLEAR) 02/17/24 15:04 Urine pH 7 (5-7) 02/17/24 15:04 Ur Specific [place] 1.005 (1.005-1.030) 02/17/24 15:04 Urine Protein Neg (Negative) 02/17/24 15:04 Urine Glucose (UA) Norm (Normal) 02/17/24 15:04 Urine Ketones Negative (Negative) 02/17/24 15:04 Urine Blood 2+ (Negative) H 02/17/24 15:04 Urine Nitrate Negative (Negative) 02/17/24 15:04 Urine Bilirubin Neg (Negative) 02/17/24 15:04 Urine Urobilinogen Norm mg/dL (Negative) 02/17/24 15:04 Ur Leukocyte Esterase Negative (Negative) 02/17/24 15:04 Urine RBC Rare /hpf (0-2) 02/17/24 15:04 Urine WBC None /hpf (0-5) 02/17/24 15:04 Ur Squamous Epith Cells Rare /hpf (0-5) 02/17/24 15:04 Amorphous Sediment Not Reportable 02/17/24 15:04 Urine Bacteria Trace /hpf (NONE) 02/17/24 15:04 Urine Opiates Screen Negative ng/mL (Negative) 02/17/24 15:04 Ur Barbiturates Screen Negative ng/mL (Negative) 02/17/24 15:04 Ur Phencyclidine Scrn Negative ng/mL (Negative) 02/17/24 15:04 Ur Amphetamines Screen Negative ng/mL (Negative) 02/17/24 15:04 U Benzodiazepines Scrn Negative ng/mL (Negative) 02/17/24 15:04 Urine Cocaine Screen Negative ng/mL (Negative) 02/17/24 15:04 U Marijuana (THC) Screen Negative ng/mL (Negative) 02/17/24 15:04 Ethyl Alcohol < 10 mg/dL (0-10) 02/17/24 10:29 Vitals Last Vital Signs Temp 97.3 F L 02/18/24 07:59 Pulse 57 L 02/18/24 07:59 Resp 19 H 02/18/24 07:59 BP 107/54 02/18/24 09:18 Pulse Ox 98 02/18/24 07:59 O2 Del Method Room Air 02/18/24 07:59 Discharge Plan Discharge Patient Disposition: Home Condition: Stable Prescriptions: New cyclobenzaprine 10 mg Tablet 5 mg PO TID PRN (Reason: Muscle Spasms) 7 Days Qty: 21 0RF Plavix 75 mg tablet 75 mg PO DAILY 10 Days Qty: 10 0RF Continued biotin 10 mg tablet 10 mg PO DAILY losartan 100 mg tablet 25 mg PO DAILY Rx Instructions: Dose decreased by PCP metoprolol succinate 25 mg tablet extended release 24 hr See Rx Instructions .ROUTE .COMPLEX Qty: 90 0RF Dose Instruction: TAKE 1 TABLET BY MOUTH DAILY Rx Instructions: TAKE 1 TABLET BY MOUTH DAILY aspirin 325 mg Tablet 325 mg PO DAILY Rx Instructions: PT STATES SHE HAS BEEN OUT SINCE SUNDAY. atorvastatin 40 mg tablet 40 mg PO DAILY amitriptyline 10 mg tablet 20 mg PO DAILY Vitamin D2 1,250 mcg (50,000 unit) capsule See Rx Instructions .ROUTE DAILY Rx Instructions: 1,250 mcg orally meloxicam 7.5 mg tablet 7.5 mg PO DAILY Discontinued Adult 50 Plus Probiotic 4 billion cell capsule 4,000 mmu cells PO DAILY Rx Instructions: administer with a meal loperamide [Imodium A-D] 2 mg Tablet 2 mg PO DAILY Discharge Orders: Discharge Order (Routine); Ordered 02/18/24 Ordered By: Halle Cope Referrals: Daljit Robertson DO [Primary Care Provider] - 02/25/24 10:00 am Julia Nolasco MD [Physician] - 03/03/24 10:00 am Discharge Diet: Cardiac Discharge Activity: Increase activity as tolerated Patient Instructions: Opioid Safety Discharge Attestations Time Spent in Discharge Care*: less than 30 min Quality Metrics Clinical Quality Measures [ No reported AMI, CVA or VTE this stay] Coding Level of Care Code Acute Code for Chg Fwd Diagnoses Brain TIA G45.9 Time Spent (min) 15
[2024-02-18 11:32] VITALS: BP 107/54
== END 2024-02-18 11:03 | disposition home or self-care (01) ==
LOC: ER 12:08 → MEDSURG 12:18
PROVIDERS: Admitting Provider Internal Medicine; Emergency Provider Emergency Medicine; PCP Electrodiagnostic Medicine; Visit Provider Internal Medicine
DX: G45.9 Transient cerebral ischemic attack, unspecified (principal); G43.909 Migraine, unspecified, not intractable, without status migrainosus; E78.5 Hyperlipidemia, unspecified; Z86.73 Personal history of transient ischemic attack (TIA), and cerebral infarction without residual deficits; Z87.891 Personal history of nicotine dependence
CPT/HCPCS: 36415; 36416; 70450; 70496; 70498; 70551; 71045; 80048; 80053; 80306; 80307; 81001; 82962; 83735; 84443; 84484; 85025; 85610; 85730; 86140; 93005; 93306; 96374; 99285; G0378; J3490; Q9967

== ENCOUNTER → 2024-02-27 09:30 | Outpatient (BNVA) | payer MEDICARE, OTHER, SELFPAY | PROVIDERS: PCP Electrodiagnostic Medicine; Visit Provider Internal Medicine Cardiovascular Disease | DX: Z86.73 Personal history of transient ischemic attack (TIA), and cerebral infarction without residual deficits (principal); I35.0 Nonrheumatic aortic (valve) stenosis; E78.5 Hyperlipidemia, unspecified; I10 Essential (primary) hypertension; Z87.891 Personal history of nicotine dependence | CPT/HCPCS: 99214 ==

== ENCOUNTER 2024-04-14 10:55 | Outpatient (CLI) | payer MEDICARE, OTHER, SELFPAY ==
--- NOTE | 2024-04-14 10:56 | MR_ITS ---
WS: [id number] MRI LUMBAR SPINE WITH CONTRAST TECHNIQUE: Sagittal T1, T2 and STIR imaging. Axial T1 and T2 imaging. Post gadolinium imaging was obt ained. CLINICAL INFORMATION: LOW BACK PAIN COMPARISON: None. FINDINGS: Mild lumbar curve. No acute compression. Slight retrolisthesis L2 on L3 and L3 on L4. Slight anteroli sthesis L4 on L5. L1-L2: Mild annular bulging. Narrowing of the subarticular recess bilaterally. Foramen are patent. Mo derate facet arthropathy. L2-L3: Mild annular bulging. Impingement RIGHT subarticular recess. Moderate facet arthropathy. Moder ate RIGHT and mild LEFT foraminal narrowing. L3-L4: Mild annular bulging. Slight narrowing RIGHT subarticular recess. Moderate RIGHT foraminal jessica rowing. Moderate facet arthropathy. L4-L5: Slight anterolisthesis. Slight effacement of the ventral thecal sac. Moderate facet arthropath y. Moderate RIGHT foraminal narrowing. Moderate facet arthropathy. L5-S1: Mild disc bulging with osteophytic ridging. Moderate LEFT foraminal narrowing. Advanced LEFT f acet arthropathy. RIGHT foramen is patent. Visualized pelvic bony structures: Normal. Paravertebral soft tissues: Normal. MR/MR lumbar spine wo/w con [id number] IMPRESSION: 1. Mild lumbar curve. Slight retrolisthesis L2 on L3 and L3 on L4. Slight ante rolisthesis L4 on L5. 2. Narrowing of the subarticular recess bilaterally L4-5. Moderate RIGHT L4-5 foraminal narrowing. 3. Moderate LEFT L5-S1 foraminal narrowing. Advanced LEFT L5-S1 facet arthropa thy. 4. Narrowing of the RIGHT greater than LEFT subarticular recess L1-2. 5. Narrowing of the RIGHT L2-3 subarticular recess. Moderate RIGHT L2-3 forami nal narrowing. 6. Moderate RIGHT L3-4 foraminal narrowing.
[2024-04-14] MEDS: gadobenate dimeglumine 20 mL vial IV (11:40)
== END 2024-04-14 10:56 | disposition home or self-care (01) ==
LOC: RAD 10:55
PROVIDERS: PCP Electrodiagnostic Medicine; Visit Provider Electrodiagnostic Medicine
DX: M51.37 Other intervertebral disc degeneration, lumbosacral region (principal); M25.78 Osteophyte, vertebrae; M43.16 Spondylolisthesis, lumbar region; M48.061 Spinal stenosis, lumbar region without neurogenic claudication
CPT/HCPCS: 72158; A9577

== ENCOUNTER 2024-04-14 12:09 | Outpatient (CLI) | payer MEDICARE, OTHER, SELFPAY | END 2024-04-14 12:10 | disposition home or self-care (01) | LOC: SLEEP 12:11 | PROVIDERS: PCP Electrodiagnostic Medicine; Visit Provider Electrodiagnostic Medicine | DX: G47.33 Obstructive sleep apnea (adult) (pediatric) (principal) | CPT/HCPCS: G0399 ==

== ENCOUNTER → 2024-05-07 10:53 | Outpatient (BNVA) | payer MEDICARE, OTHER, SELFPAY | PROVIDERS: PCP Electrodiagnostic Medicine; Visit Provider Internal Medicine Cardiovascular Disease | DX: I35.0 Nonrheumatic aortic (valve) stenosis (principal); R03.0 Elevated blood-pressure reading, without diagnosis of hypertension; E78.5 Hyperlipidemia, unspecified; I10 Essential (primary) hypertension; Q21.12 Patent foramen ovale; Z86.73 Personal history of transient ischemic attack (TIA), and cerebral infarction without residual deficits; Z87.891 Personal history of nicotine dependence | CPT/HCPCS: 99214 ==

== ENCOUNTER 2024-06-30 06:29 | Outpatient (CLI) | payer MEDICARE, OTHER, SELFPAY ==
--- NOTE | 2024-06-30 | ECG_ITS ---
[facility] [facility] Test Date: 2024-06-30 Pat Name: Beena Fernandez Department: Room: Gender: Female Director Immunology: : 1950 Requested By: Julia Nolasco Order Number: [id number] Blake MD: Julia Nolasco M.D. Interpretive Statements PROCEDURE: At the baseline, the EKG revealed normal sinus rhythm with normal ST Ts.. The baseline heart was 70 bpm with a blood pressue of 147/83 mm of Hg Lexiscan was infused over a period of 20 seconds. A total of 0.4 milligrams of Lexiscan was infused. The stress phase was continued for a total of 5 minutes. Heart rate at the end of the stress phase was 86 bpm with a blood pressure 133/66 mm of Hg. The EKG at the peak infusion revealed no significant changes. Sestamibi was injected 20 seconds after the Lexiscan infusion. Heart rate at the end of the recovery phase was 87 bpm with a blood pressure of 138/65 mm of Hg. CONCLUSION: 1. No significant EKG changes with the LexiScan infusion 2. No LexiScan induced chest pain or cardiac arrhythmia 3. Normal blood pressure and heart rate response 4. Sestamibi/sestamibi perfusion scan pending; see separate report. Lung unchanged pre/post procedure; Intraprocedure shortess of breath; Symptoms resoled by discharge Electronically Signed On 06-30-2024 12:32:45 CDT by Julia Nolasco M.D. [email or web address]
[2024-06-30 06:47] VITALS: BMI 32.5
--- NOTE | 2024-06-30 06:48 | NMCV_ITS ---
NM samia perf SPECT r/s* [id number] Beena Fernandez Age: 74 Gender: F : 1950 Exam Date: 06/30/2024 06:48 Ordering Phys: Julia Nolasco MD ([email or web address]) Technologist: RADHA Dc Exam Location: [facility] Indications: Abn EKG STRESS TEST Please see separate stress test report [facility] for full findings IMAGE PROTOCOL Rest/Stress 1 Lexiscan Day Radiopharmaceutical Dose (mCi) Administration Site Administered by Rest: Tc-99m 9.5 IV Priscila Verenice, MANAGER ERP Sestamibi Stress:Tc-99m 31.3 IV Priscila Verenice, MANAGER ERP Sestamibi Rest: 06/30/2024 60 Discovery 630 Stress: 06/30/2024 30 Discovery 630 0.4mg Lexiscan. Images obtained in supine and prone position. SPECT RESULTS Technical Quality: Excellent Raw Data Analysis: Normal Image Corrections: No attenuation or motion correction applied Summed Stress Score: 2 Summed Rest Score: 1 Summed Difference Score: 1 PERFUSION FINDINGS Small area of moderately decreased tracer uptake involving the mid inferolateral segment with some reversibility FUNCTIONAL RESULTS (calculated via Gated SPECT) Stress Image LV EF (%): 69 Stress EDV (mL):101 TID: 0.93 Stress ESV (mL):31 FUNCTIONAL FINDINGS: Segmental wall motion analysis revealing no gross wall motion abnormalities IMPRESSIONS 1. Myocardial perfusion imaging revealing a small area of moderately decreased tracer uptake involving the mid inferolateral region with some reversibility suggesting a small area of myocardial scarring with possible preinfarction ischemia in the distribution of the left circumflex artery 2. Normal LV ejection fraction of 69%. 3. LV wall motion analysis revealing no gross wall motion abnormalities. 4. Normal LV volume Compared to the study from 10/12/2020, there may not be a significant change Dr Julia Nolasco MD [facility] (Electronically Signed) Final Date: 01 July 2024 08:47 S
[2024-06-30] MEDS: regadenoson 0.4 Mg/5 ml Syringe IVP (08:22)
[2024-06-30 08:38] VITALS: BP 138/65; PULSE 86
== END 2024-06-30 06:30 | disposition home or self-care (01) ==
PROVIDERS: PCP Electrodiagnostic Medicine; Visit Provider Internal Medicine Cardiovascular Disease
DX: R94.31 Abnormal electrocardiogram [ECG] [EKG] (principal); R06.02 Shortness of breath
CPT/HCPCS: 36415; 78452; 93017; 96374; A9500; J2785

== ENCOUNTER → 2025-03-24 15:55 | Outpatient (BNVA) | payer MEDICARE, OTHER, SELFPAY | PROVIDERS: PCP Electrodiagnostic Medicine; Visit Provider Nurse Practitioner Women's Health | DX: I10 Essential (primary) hypertension (principal); E78.5 Hyperlipidemia, unspecified | CPT/HCPCS: 82306; 84443 ==

== ENCOUNTER 2025-04-01 13:37 | Outpatient (CLI) | payer MEDICARE, OTHER, SELFPAY ==
--- NOTE | 2025-04-01 13:40 | MM_ITS ---
WS: [id number] BILATERAL 3D TOMOSYNTHESIS DIGITAL SCREENING MAMMOGRAPHY WITH CAD CLINICAL INFORMATION: Z12.31 - Encounter for screening mammogram for malignant ... HISTORY: Screening mammogram. No current complaints. COMPARISON: 2022 TECHNIQUE: Bilateral CC and MLO views. FINDINGS: Scattered fibroglandular densities bilaterally. No suspicious focal mass, asymmetry, calcifications, or architectural distortion. No evidence of malignancy. [place] centered calcification RIGHT breast MM/MM scr tomosynthesis [id number] IMPRESSION: DENSITY: There are scattered areas of fibroglandular density. BI-RADS: 2 - Benign. FOLLOW UP: 1 Year Follow-up Recommend return to annual screening mammography.
--- NOTE | 2025-04-01 14:00 | XR_ITS ---
WS: [id number] DEXA (DUAL ENERGY X-RAY ABSORPTIOMETRY) Bone mineral density was performed using a [employer] machine. HISTORY: Z78.0 - Asymptomatic menopausal state COMPARISON: None available. Left forearm BMD: 0.733 g/cm2. T score: -1.6 Z score: 0.7 Total hip BMD: Left: 0.892 g/cm2. T score: -0.9 Z score: 0.5 Right: 0.860 g/cm2. T score: -1.2 Z score: 0.2 10 year probability of a major osteoporotic fracture is 12.2%. XR/XR DEXA axial skeleton* [id number] IMPRESSION: OSTEOPENIA based upon the WHO classification for females.
== END 2025-04-01 13:38 | disposition home or self-care (01) ==
LOC: RAD 13:38
PROVIDERS: PCP Electrodiagnostic Medicine; Visit Provider Nurse Practitioner Women's Health
DX: Z12.31 Encounter for screening mammogram for malignant neoplasm of breast (principal); Z13.820 Encounter for screening for osteoporosis; Z78.0 Asymptomatic menopausal state; R92.323 Mammographic fibroglandular density, bilateral breasts; R92.1 Mammographic calcification found on diagnostic imaging of breast; M85.88 Other specified disorders of bone density and structure, other site
CPT/HCPCS: 77063; 77067; 77080